=== PATIENT | male | born 1980 | race Caucasian/White ===

== ENCOUNTER 2016-11-28 14:49 | Emergency (ER) | payer OTHER ==
[~2016-11-28] VITALS: Ht 188 cm; Wt 87.1 kg
[2016-11-28 14:52] VITALS: TEMP 37.1; Ht 188 cm; Wt 87.1 kg
[2016-11-28] MEDS ORDERED: BUPIVACAINE 0.5 % 5 MG/1 ML MPF 30ML VIAL INFIL STA (15:20)
[2016-11-28] MEDS ORDERED: XYLOCAINE 1%/SOD BICARB 20 ML VIAL INFIL STA (15:20)
--- NOTE | 2016-11-28 15:41 | DIAGNOSTIC IMAGING REPORT ---
Right thumb 3 views CLINICAL HISTORY: Pain status post trauma COMPARISON: None. DISCUSSION: 3 views reveal no fractures or dislocations. There is an injury involving the distal soft tissues. No radiopaque foreign bodies are visualized. IMPRESSION: Soft tissue injury. No fractures are visualized. Electronically signed by: Urbano Duke M.D. 11/28/2016 3:40 PM Dictated Date/Time: 11/28/2016 3:39 PM
--- NOTE | 2016-11-28 17:08 | EMERGENCY ROOM VISIT NOTE ---
ED Visit Note First contact with patient: 15:10 Chief Complaint: "Cut the tip of right thumb off". History of Present Illness: This patient is a 36-year-old male who presents to the Emergency Department via private vehicle for evaluation of their right thumb laceration. Patient sustained the laceration while cleaning a food slicer. They report a moderate amount of bleeding initially. They deny any numbness or tingling into the distal extremity. They report no decreased range of motion of the affected digit. Patient rates his current discomfort as a 2/10. Patient's Tetanus status is currently up-to-date. Medications: None reported Allergies: None reported PMH: Unremarkable SHx: Patient is employed, he admits to tobacco use and denies alcohol use. ROS: All pertinent positive and negative review of systems are appropriately documented in the History of Present Illness. Physical Exam: VITAL SIGNS - Vital signs and nursing notes were reviewed. Patient is afebrile , blood pressure 157/61, non-tachycardic and is saturating well on room air 97%. GENERAL -36-year-old male appearing his stated age who is in no acute distress. Communicates well with provider and answers questions appropriately. SKIN - There is a 2 cm long laceration noted distal tip of the right thumb, with involvement into the nailbed. The nail is intact, but is lacerated on the lateral aspect, distal one third. The edges gape apart with traction. No foreign bodies appreciated. Upon further examination there are no deep structures including vessel, tendon, or bony structures appreciated. There is minimal active bleeding noted. MUSCULOSKELETAL - Laceration as described above. +5/5 strength appreciated of the affected digit. Full range of motion of the affected digit. NEUROLOGIC - Spinothalamic tract was found to be intact with ability to discriminate sharp versus dull sensation. No sensory defects of the dorsal column were appreciated utilizing light touch for evaluation. VASCULAR - Capillary refill was brisk. IMAGING: Right thumb 3 views CLINICAL HISTORY: Pain status post trauma COMPARISON: None. DISCUSSION: 3 views reveal no fractures or dislocations. There is an injury involving the distal soft tissues. No radiopaque foreign bodies are visualized. IMPRESSION: Soft tissue injury. No fractures are visualized. Electronically signed by: Urbano Duke M.D. 11/28/2016 3:40 PM Dictated Date/Time: 11/28/2016 3:39 PM ED Course: Patient was seen and evaluated by myself. Risks and benefits of performing primary wound closure versus no repair were discussed with the patient who verbalizes understanding. There was concern for distal phalanx involvement therefore radiograph was obtained. Results as above. I agree with radiologist findings. Verbal consent was obtained prior to performing the procedure. 6 cc of 50/50 1 % buffered lidocaine and 0.5% bupivacaine was used to perform a digital block of the right first digit. The wound was cleansed and prepped in the typical sterile fashion utilizing normal saline and Betadine. The wound was sterilely draped. Once proper anesthetization was established, the wound was further examined and demonstrated a laceration not full-thickness, this seems to spare the bone. The wound was copiously irrigated with normal saline and Betadine. The wound was closed using 2 simple, 5-0 nylon sutures with the wound edges being well approximated. Patient tolerated the procedure well. No complications were met. The wound was cleansed and dressed with a Bacitracin dressing. Patient educated on worrisome symptoms for return visit to the Emergency Department. Patient discharged to home in good condition. In the evaluation and treatment of this patient following differential diagnoses were entertained: Finger fracture, contusion, laceration, among others. Current/Historical Medications No Active Prescriptions or Reported Meds Allergies Coded Allergies: No Known Allergies (Unverified , 02/21/15) Vital Signs Date Time Temp Pulse Resp B/P Pulse Ox O2 Delivery O2 Flow Rate FiO2 11/28/16 17:24 63 14 138/89 95 11/28/16 14:52 37.1 70 18 157/61 97 Room Air Departure Information Impression Primary Impression: Laceration Dispostion Home / Self-Care Condition GOOD Prescriptions No Active Prescriptions or Reported Meds Referrals No Doctor, Assigned (PCP) Oleg Larry MD Patient Instructions My [facility] [place] Additional Instructions Discharge Instructions: You have received 2 sutures on your right thumb. These sutures are NOT dissolvable and WILL need to be removed by a health care provider in 12 days. You can return to the Emergency Department or contact your Primary Care Provider to have the sutures removed. Please wear the splint for comfort until the sutures are removed. Proper wound care is essential for adequate wound healing and infection prevention. You can shower and clean the wound with soap and water. Do not scour over the wound, pat dry with a towel. Do not submerse the wound (i.e. bathe or dish wash) until the sutures have been removed. You can use an antibiotic ointment with a dressing over the wound for the next 3-4 days. After this time you may leave the wound dry and open to the air. If crust develops over the wound you can use a Q-tip to apply a 1:1 peroxide:water solution to clean the wound. Look for signs of infection of the wound including: increased pain, swelling, foul discharge, streaking, or increased temperature. If any of these are noticed you should return to the Emergency Department for further assessment and treatment. As with any laceration you may have received nerve damage to the surrounding tissues. This damage may or may not be permanent. You should keep the area covered with sunscreen for the first 6 months to 1 year when at risk for exposure to help minimize scarring. You can also use scar reducing creams or Vitamin E oil to help minimize scarring. For pain control, you can use the following uvso-rxe-xtbmsil medicines (if >12 yo): - Regular strength (325mg/tab) Tylenol (acetaminophen) 2 tabs every 4-6 hours as needed. Do not exceed 12 tablets in a 24 hour period. Avoid taking more than 4 grams (4000 mg) of Tylenol per day. This includes any other sources of acetaminophen you may take on a regular basis. - Regular strength (200 mg/tab) Advil (ibuprofen) 1-2 tabs every 4-6 hours as needed. Do not exceed a dose of 3200 mg per day. Return to the emergency department if your symptoms worsen despite treatment course outlined above. You've the provided number for a hand specialist. It is recommended he follow- up with him regarding your injury. (Dr. Larry) Please follow-up with Workmen's Compensation individuals for final clearance to go back to work.
[2016-11-28 17:24] VITALS: BP 138/89; PULSE 63; O2SAT 95
== END 2016-11-28 17:27 | disposition home or self-care (01) ==
LOC: C.EDB 14:50 → C.EDD 17:27
DX: S61.112A Laceration without foreign body of left thumb with damage to nail, initial encounter (principal); W31.82XA Contact with other commercial machinery, initial encounter; Y93.G1 Activity, food preparation and clean up; Y99.0 Civilian activity done for income or pay; F17.200 Nicotine dependence, unspecified, uncomplicated

== ENCOUNTER 2017-04-02 01:06 | Emergency (ER) | payer SELFPAY ==
[~2017-04-02] VITALS: Ht 188 cm; Wt 84.1 kg
[2017-04-02 01:11] VITALS: TEMP 36.6; Ht 188 cm; Wt 84.1 kg
[2017-04-02] MEDS ORDERED: LIDO/EPINEPHRINE/SOD BICARB 20 ML VIAL INFIL ONE (01:17)
--- NOTE | 2017-04-02 01:33 | EMERGENCY ROOM VISIT NOTE ---
ED Visit Note First contact with patient: 01:18 CHIEF COMPLAINT: Finger laceration HISTORY OF PRESENT ILLNESS: This 37 yo patient presents to the emergency department with friend after cutting the right first finger on a piece of glass. The bleeding has not stopped. Denies weakness or numbness of the finger. The patient has full range of motion of the fingers. The patient rates the pain as mild and 2/10. The patient denies any other injuries. The patient's tetanus shot is up to date. REVIEW OF SYSTEMS: A 6 system review of systems was completed with positives and pertinent negatives listed in the HPI. ALLERGIES: None MEDICATIONS: None PMH: None SOCIAL HISTORY: No drug use PHYSICAL EXAM: Vital Signs: Reviewed Nurse's notes, vital signs stable. GENERAL : Pleasant male, in no acute distress, well developed, well nourished. SKIN: There is a 3 cm long laceration on the proximal aspect of the right first finger. The edges gape apart with traction. There is no foreign material in the wound and it looks clean. There is bleeding. No deep structures such as tendons , bones, or significant blood vessels are seen in the base of the wound. Extension and flexion of the finger is full and strong. Full range of motion of the wrist and other fingers. Capillary refill less than 2 seconds. Normal sensation to light and sharp touch. EMERGENCY DEPARTMENT COURSE: I examined the patient. Using sterile technique the wound was cleansed with Betadine. 2 ml of 1% buffered lidocaine was used to perform a digital block to anesthetize the patient. The area was sterilely draped. Once the patient was anesthetized, the wound was copiously irrigated under pressure with sterile saline. The wound was explored and there were no deep structures injured. The laceration was repaired using 5 simple interrupted 5-0 nylon sutures. The patient tolerated the procedure well. Hemostasis was achieved. The area was cleaned with sterile saline and dressed with bacitracin ointment and bandage. 5 The patient was given a tetanus booster. The patient was discharged home in good condition. DIAGNOSIS: Finger laceration, thumb right, initial evaluation DISCHARGE INSTRUCTIONS & TREATMENT: Keep wound clean and dry. Do not allow any crusting or dried blood to accumulate on sutures. If this occurs, use a 1:1 solution of hydrogen peroxide/water on a Q-tip to clean the wound. Use an antibiotic ointment for 3-4 days, then let wound dry. Suture removal in 10-12 days. Return sooner for any signs of infection (increasing redness, swelling, drainage). Ice and elevate for swelling and pain. Ibuprofen 600 mg and Tylenol 500 mg every 6 hrs for pain. Keep covered when in sun until sutures removed then SPF 50 or higher for one year. Vitamin E oil if desired two weeks after suture removal for reduction of scar. Current/Historical Medications No Active Prescriptions or Reported Meds Allergies Coded Allergies: No Known Allergies (Unverified , 02/21/15) Vital Signs Date Time Temp Pulse Resp B/P (MAP) Pulse Ox O2 Delivery O2 Flow Rate FiO2 04/02/17 01:11 36.6 79 16 130/71 95 Room Air Medications Administered Medications (Trade) Dose Ordered Sig/Jin Route Start Time Stop Time Status Last Admin Dose Admin Lidocaine/ Epinephrine (Buffered Xylocaine/ Epinephrine 1% Inj) 20 ml STK-MED ONCE INFIL 04/02/17 01:17 04/02/17 01:18 DC 04/02/17 01:17 20 ML Departure Information Prescriptions No Active Prescriptions or Reported Meds Referrals No Doctor, Assigned (PCP) Patient Instructions My [facility]
[2017-04-02 01:39] VITALS: BP 125/67; PULSE 70; O2SAT 95
== END 2017-04-02 01:40 | disposition home or self-care (01) ==
LOC: C.EDB 01:07 → C.EDA 01:40
DX: S61.011A Laceration without foreign body of right thumb without damage to nail, initial encounter (principal); W25.XXXA Contact with sharp glass, initial encounter

== ENCOUNTER 2017-12-14 11:30 | Emergency (ER) | payer SELFPAY ==
[~2017-12-14] VITALS: Ht 188 cm; Wt 88.5 kg
[2017-12-14 11:34] VITALS: Ht 188 cm; Wt 88.5 kg
[2017-12-14] MEDS ORDERED: ACETAMINOPHEN 500 MG TAB PO STA (11:55)
--- NOTE | 2017-12-14 12:28 | DIAGNOSTIC IMAGING REPORT ---
L-SPINE MIN 4 VIEWS ROUTINE CLINICAL HISTORY: Left low back pain. COMPARISON: Lumbar spine radiographs April 10, 2009. FINDINGS: Alignment of the lumbar spine is anatomic. There is no acute fracture. There is no suspicious lesion. There is mild disc space narrowing at L4-L5 and L5-S1. IMPRESSION: 1. No acute lumbar spine fracture or subluxation. 2. Mild disc space narrowing and osteophytosis at L4-L5 and L5-S1. Electronically signed by: Bryan Lowry M.D. 12/14/2017 12:27 PM Dictated Date/Time: 12/14/2017 12:26 PM
[2017-12-14] MEDS ORDERED: PRED50TA PO (12:55)
[2017-12-14] MEDS ORDERED: TRAM-10 PO (12:55)
[2017-12-14] MEDS ORDERED: CYCL10TA6 PO (12:55)
[2017-12-14 13:18] VITALS: BP 132/67; PULSE 50; TEMP 36.4; O2SAT 98
--- NOTE | 2017-12-14 16:22 | EMERGENCY ROOM VISIT NOTE ---
ED Visit Note First contact with patient: 11:40 CHIEF COMPLAINT: Low back pain HISTORY OF PRESENT ILLNESS: This 37-year-old male patient presents to the emergency department complaining of pain in the low back which began worsening over the past 2-3 days. The pain was gradual in onset, is now constant and worse with movement. The patient notes the pain as dull and a 7/10. The patient has taken nothing [id number] for relief of the pain. The patient denies any loss of control of their bowel or bladder functions. There has been no leg numbness or weakness, and no change in sensation. No nausea or vomiting or abdominal pain. No chest pain or shortness of breath. The patient has not had prior back injuries. No dysuria or increased urinary frequency. REVIEW OF SYSTEMS: A review of systems was performed with positives and pertinent negatives listed in the history of present illness. All other systems were reviewed and are negative. ALLERGIES: No known allergies MEDICATIONS: No chronic medication PMH: Otherwise healthy SOCIAL HISTORY: Employed and lives locally PHYSICAL EXAM: VITALS: Vitals are noted on the nurse's note and reviewed by myself. Vital signs stable. GENERAL: White male, in no acute distress, nondiaphoretic, well-developed well- nourished. SKIN: The skin was without rashes, erythema, edema, or bruising. Capillary refill less than 2 seconds. NECK: Supple without nuchal rigidity. No cervical spine tenderness. No paraspinous muscle tenderness. HEART: Regular rate and rhythm without murmurs gallops or rubs. LUNGS: Clear to auscultation bilaterally without wheezes, rales or rhonchi. ABDOMEN: Positive bowel sounds x 4. Normal tympanic percussion. Soft, nontender, without masses or organomegaly. Lim sign negative. MUSCULOSKELETAL: No muscle atrophy, erythema, or edema noted of the back. There is positive tenderness over the lumbar spinous processes. There is mild tenderness over the paraspinous muscles. There is no tenderness over the thoracic spine or paraspinous muscles. There are no muscle spasms present. The patient is slow to move around with maximum tenderness with flexion. Positive left greater than right straight leg raise test. NEURO: Patient was alert and oriented to person place and time. Normal sensation to light and sharp touch. Deep tendon reflexes 2+ in the lower extremities. Dorsalis pedis pulse 2+ bilaterally. Strength 5/5 and equal in the bilateral lower extremities. L-SPINE MIN 4 VIEWS ROUTINE CLINICAL HISTORY: Left low back pain. COMPARISON: Lumbar spine radiographs April 10, 2009. FINDINGS: Alignment of the lumbar spine is anatomic. There is no acute fracture. There is no suspicious lesion. There is mild disc space narrowing at L4-L5 and L5-S1. IMPRESSION: 1. No acute lumbar spine fracture or subluxation. 2. Mild disc space narrowing and osteophytosis at L4-L5 and L5-S1. EMERGENCY DEPARTMENT COURSE: Physical and history were performed. Nursing notes and EMR were reviewed. The patient appears to have back pain for the past several days. He does have some low back tenderness but no neurologic deficit. X-rays were obtained and did not show acute fracture or subluxation per my radiology's interpretation. I did give the patient Tylenol here in the department. He will be given a continuation prescription of tramadol, Flexeril , and prednisone. He is to follow with his primary care physician for further management. He is otherwise very back to the ER with any new, worsening, or concerning symptoms. Differential diagnosis: Etiologies such as musculoskeletal, disc herniation, fracture, aortic disease, metastatic disease, cord compression, discitis, infection, renal colic, gastrointestinal, acute exacerbation of chronic back pain, sciatica, cauda equina, as well as others were entertained. Current/Historical Medications Scheduled Cyclobenzaprine Hcl (Flexeril), 10 MG PO TID Prednisone (Prednisone), 50 MG PO DAILY Scheduled PRN Tramadol (Ultram), 50 MG PO Q8H PRN for Pain Allergies Coded Allergies: No Known Allergies (Unverified , 12/14/17) Vital Signs Date Time Temp Pulse Resp B/P (MAP) Pulse Ox O2 Delivery O2 Flow Rate FiO2 12/14/17 13:18 36.4 50 12 132/67 98 12/14/17 11:34 36.4 59 20 138/88 98 Room Air Medications Administered Medications (Trade) Dose Ordered Sig/Jin Route Start Time Stop Time Status Last Admin Dose Admin Acetaminophen (Tylenol Tab) 1,000 mg NOW STAT PO 12/14/17 11:55 12/14/17 11:56 DC 12/14/17 12:03 1,000 MG Departure Information Impression Primary Impression: Low back pain Dispostion Home / Self-Care Prescriptions Prednisone (Prednisone) 50 Mg Tab 50 MG PO DAILY for 4 Days, #4 TAB Prov: Jonathan Salas PA-C 12/14/17 Cyclobenzaprine Hcl (FLEXERIL) 10 Mg Tab 10 MG PO TID for 7 Days, #21 TAB Prov: Jonathan Salas PA-C 18 Tramadol (Ultram) 50 Mg Tab 50 MG PO Q8H Y for Pain for 3 Days, #9 TAB Prov: Jonathan Salas PA-C 12/14/17 Forms HOME CARE DOCUMENTATION FORM, IMPORTANT VISIT INFORMATION Patient Instructions My [facility] Additional Instructions You were seen and evaluated today on an emergency basis only. This is not a substitute for, or an effort to provide, complete comprehensive medical care. It is not possible to recognize and treat all injuries or illnesses in a single emergency department visit. For this reason it is recommended that you followup with your primary care physician in the next 1-2 weeks if symptoms persist. For baseline pain relief you may alternate ibuprofen and acetaminophen every 4 hours for pain control. Take 600 mg ibuprofen (Advil) and then 4 hours later take 1000 mg acetaminophen (Tylenol). Do not take more than 3000 mg acetaminophen in a single day. Take tramadol 50 mg every 8 hours as needed for breakthrough pain. Do not drink or drive while on this medication. Flexeril 1 tablet up to 3 times a day as needed for muscle spasms. No driving, working, or alcohol use with Flexeril. Take prednisone daily for the next 4 days. This medication is best taken in the morning with food. You are welcome to return to the emergency department anytime with new, worsening, or concerning symptoms.
== END 2017-12-14 13:19 | disposition home or self-care (01) ==
LOC: C.EDB 11:32 → C.EDD 13:19
DX: M54.5 Low back pain (principal)

== ENCOUNTER 2018-01-27 16:40 | Emergency (ER) | payer SELFPAY ==
[~2018-01-27] VITALS: Ht 188 cm; Wt 83.6 kg
[2018-01-27 16:43] VITALS: TEMP 36.5; Ht 188 cm; Wt 83.6 kg
[2018-01-27 16:54] VITALS: O2SAT 98
[2018-01-27] MEDS ORDERED: KETOROLAC TROMETHAMINE 30 MG/ML VIAL IV STA (17:04)
[2018-01-27] MEDS ORDERED: ACETAMINOPHEN 500 MG TAB PO STA (17:04)
--- NOTE | 2018-01-27 17:08 | EMERGENCY ROOM VISIT NOTE ---
History Report prepared by Darren: Erasto Whitten Under the Supervision of: Dr. Hiren Quintana M.D. First contact with patient: 16:47 Chief Complaint: CHEST PAIN Stated Complaint: BRADYCARDIA, CHEST PAIN-[facility] RE[facility]ERR[facility] History of Present Illness The patient is a 38 year old white male with no past medical history who presents to the ED with a cc of coming and going chest pain beginning four days ago that is described as a tightness and sharp. Positive cough, chills and night sweat. Negative fever, history of clots in the lungs or legs, recent travel, leg swelling, drug use, trauma, strain, or heavy lifting. The pain stays in the middle occasionally going to the left. He has not taken anything for the pain other than Tylenol at [facility]. He smokes tobacco. Source of History: patient Onset: four days ago Position: chest Quality: sharp, other (tight) Timing: other (coming and going) Associated Symptoms: + chills, + cough, No fevers Note: Associated symptoms: Night sweats Review of Systems See HPI for pertinent positives and negatives. A total of ten systems were reviewed and were otherwise negative. Family History Diabetes mellitus Social History Smoking Status: Current Every Day Smoker Alcohol Use: occasionally Marital Status: Housing Status: lives with family Occupation Status: employed Current/Historical Medications Scheduled Ibuprofen Tab (Advil), 400 MG PO UD Allergies Coded Allergies: No Known Allergies (Unverified , 01/27/18) Physical Exam Vital Signs Date Time Temp Pulse Resp B/P (MAP) Pulse Ox O2 Delivery O2 Flow Rate FiO2 01/27/18 18:59 59 17 112/73 98 01/27/18 17:52 63 15 127/73 99 Room Air 01/27/18 17:15 57 17 131/83 99 Room Air 01/27/18 16:59 58 01/27/18 16:54 98 Room Air 01/27/18 16:43 36.5 51 16 148/78 98 Room Air Physical Exam GENERAL: Awake, alert, well-appearing, NAD HENT: Normocephalic, atraumatic. EYES: Normal conjunctiva. Sclera non-icteric. PERRL. No anisocoria. NECK: Supple. No nuchal rigidity. FROM. RESPIRATORY: CTAB, no rhonchi, wheezing, crackles CARDIAC: RRR, no MRG ABDOMEN: Soft, NTND, BS+ MSK: No chest wall TTP, no LE edema NEURO: GCS 15, CN 2-12 intact, moves all 4s on command SKIN: No rash or jaundice noted. Medical Decision & Procedures ER Provider Diagnostic Interpretation: Radiology results as stated below per my review and radiologist interpretation: CHEST ONE VIEW PORTABLE CLINICAL HISTORY: Atypical chest pain. Bradycardia. COMPARISON STUDY: No previous studies for comparison. FINDINGS: The cardiac and mediastinal contours are normal. There is no evidence of focal pulmonary consolidation. There is no evidence of failure. No pleural effusions are visualized.[ IMPRESSION: No active disease in the chest. Electronically signed by: Urbano Duke M.D. 01/27/2018 5:19 PM Dictated Date/Time: 01/27/2018 5:19 PM Laboratory Results 01/27/18 17:03 Red Blood Count 4.95, Mean Corpuscular Volume 85.1, Mean Corpuscular Hemoglobin 30.3, Mean Corpuscular Hemoglobin Concent 35.6, Mean Platelet Volume 10.6, Neutrophils (%) (Auto) 62.8, Lymphocytes (%) (Auto) 28.2, Monocytes (%) (Auto) 7.7, Eosinophils (%) (Auto) 0.6, Basophils (%) (Auto) 0.6, Neutrophils # (Auto) 4.22, Lymphocytes # (Auto) 1.90, Monocytes # (Auto) 0.52, Eosinophils # (Auto) 0.04, Basophils # (Auto) 0.04 01/27/18 17:03 Test 01/27/18 17:03 White Blood Count 6.73 K/uL (4.8-10.8) Red Blood Count 4.95 M/uL (4.7-6.1) Hemoglobin 15.0 g/dL (14.0-18.0) Hematocrit 42.1 % (42-52) Mean Corpuscular Volume 85.1 fL (80-100) Mean Corpuscular Hemoglobin 30.3 pg (25-34) Mean Corpuscular Hemoglobin Concent 35.6 g/dl (32-36) Platelet Count 271 K/uL (130-400) Mean Platelet Volume 10.6 fL (7.4-10.4) Neutrophils (%) (Auto) 62.8 % Lymphocytes (%) (Auto) 28.2 % Monocytes (%) (Auto) 7.7 % Eosinophils (%) (Auto) 0.6 % Basophils (%) (Auto) 0.6 % Neutrophils # (Auto) 4.22 K/uL (1.4-6.5) Lymphocytes # (Auto) 1.90 K/uL (1.2-3.4) Monocytes # (Auto) 0.52 K/uL (0.11-0.59) Eosinophils # (Auto) 0.04 K/uL (0-0.5) Basophils # (Auto) 0.04 K/uL (0-0.2) RDW Standard Deviation 41.1 fL (36.4-46.3) RDW Coefficient of Variation 13.3 % (11.5-14.5) Immature Granulocyte % (Auto) 0.1 % Immature Granulocyte # (Auto) 0.01 K/uL (0.00-0.02) Anion Gap 6.0 mmol/L (3-11) Est Creatinine Clear Calc Drug Dose 121.3 ml/min Estimated GFR () 115.1 Estimated GFR (Non- 99.3 BUN/Creatinine Ratio 11.5 (10-20) Calcium Level 8.9 mg/dl (8.5-10.1) Troponin I < 0.015 ng/ml (0-0.045) Laboratory results reviewed by me Medications Administered Medications (Trade) Dose Ordered Sig/Jin Route Start Time Stop Time Status Last Admin Dose Admin Acetaminophen (Tylenol Tab) 1,000 mg NOW STAT PO 01/27/18 17:04 01/27/18 17:13 DC 01/27/18 17:15 1,000 MG Ketorolac Tromethamine (Toradol Inj) 30 mg NOW STAT IV 01/27/18 17:04 01/27/18 17:13 DC 01/27/18 17:16 30 MG ECG Per My Interpretation Indication: chest pain Rate (beats per minute): 50 Rhythm: sinus bradycardia Findings: other (Normal interval, normal axis, no STS changes or TWI) ED Course 1646: The patient was evaluated in room C3. A complete history and physical exam was performed. 1833: I reevaluated the patient. Discussed results and discharge instructions: he verbalized understanding and agreement. The patient is ready for discharge. Medical Decision Nursing notes reviewed. Ancillary studies and prior records reviewed. The patient is a 38 year old white male with no past medical history who presents to the ED with a cc of coming and going chest pain beginning four days ago that is described as a tightness and sharp. Differential diagnosis: Etiologies such as cardiac ischemia, aortic dissection, pulmonary embolism, pneumonia, pneumothorax, musculoskeletal, infections, pericarditis, myocarditis , esophageal rupture, gastrointestinal, as well as others were entertained. Patient was seen and evaluated at the bedside. Patient was referred given some mild chest discomfort along with some bradycardia. Per the outside records they were concerned about a junctional bradycardia. I did review the outside EKG there does appear to be P waves. Patient did complain of some mild chest discomfort. The patient was given 4 aspirin prior to arrival. The patient denies any exertional symptoms. Patient is a smoker. No history of DVT or PE. Patient had blood work completed, EKG, troponin, chest x-ray. Patient's chest x -ray is negative. Patient's EKG shows sinus bradycardia. No STS changes are TWI. Patient has a heart score of 1. Less likely ACS. Believe he is suitable for outpatient follow-up and treatment. The patient has a PE RC score of 0 less likely PE. This may be related to some bronchitis given the patient's smoking history. Patient was given counseling on smoking cessation told to continue [id number] type treatments and to return if any worsening symptoms. Patient was given strict follow-up, discharge, and return precautions. All questions were answered. Patient was deemed suitable for outpatient follow-up at this time. Patient agreed with the plan of care and was safely discharged home. Medication Reconcilliation Current Medication List: was personally reviewed by me Blood Pressure Screening Patient's blood pressure: Elevated blood pressure Blood pressure disposition: Elevated BP felt to be situational Impression Primary Impression: Chest pain Additional Impressions: Encounter for smoking cessation counseling Hypokalemia Bronchitis Scribe Attestation The scribe's documentation has been prepared under my direction and personally reviewed by me in its entirety. I confirm that the note above accurately reflects all work, treatment, procedures, and medical decision making performed by me. Departure Information Dispostion Home / Self-Care Referrals No Doctor, Assigned (PCP) Forms Call Back Authorization, HOME CARE DOCUMENTATION FORM, IMPORTANT VISIT INFORMATION Patient Instructions Bronchitis Acute, ED Smoking Cessation, My [facility] Additional Instructions Please return to the emergency department if you have worsening or recurrent symptoms not amenable to at-home treatment. Please call for a follow-up appointment with her primary care physician. Please take your medications as prescribed. If you have other concerns and/or complaints please feel free to also call your primary care physician's office or return the ED for further evaluation, management, and treatment. You may take 800 mg Ibuprofen every 6 hours as needed for pain/fever with food unless told by your physician not to take NSAIDs. You may take tylenol 1000 mg every 6 hours as needed for pain/fever unless told by your physician to not take it or have liver problems. You may take motrin and tylenol separately or at the same time. Take your medications as prescribed. Please consider smoking cessation. You have been examined and treated today on an emergency basis only. This is not a substitute for, or an effort to provide, complete comprehensive medical care. It is impossible to recognize and treat all injuries or illnesses in a single emergency department visit. It is therefore important that you follow up closely with [facility], your PCP, and/or your specialist(s). Call as soon as possible for an appointment. Thank you for your time and consideration. I look forward to speaking with you again soon. Please don't hesitate to call us if you have any questions. Problem Qualifiers Primary Impression: Chest pain Chest pain type: unspecified Qualified Codes: R07.9 - Chest pain, unspecified
--- NOTE | 2018-01-27 17:21 | DIAGNOSTIC IMAGING REPORT ---
CHEST ONE VIEW PORTABLE CLINICAL HISTORY: Atypical chest pain. Bradycardia. COMPARISON STUDY: No previous studies for comparison. FINDINGS: The cardiac and mediastinal contours are normal. There is no evidence of focal pulmonary consolidation. There is no evidence of failure. No pleural effusions are visualized.[ IMPRESSION: No active disease in the chest. Electronically signed by: Urbano Duke M.D. 01/27/2018 5:19 PM Dictated Date/Time: 01/27/2018 5:19 PM
[2018-01-27 17:31] LABS: BASO % 0.6 %; BASO ABS # 0.04 K/uL (0-0.2); EOS % 0.6 %; EOS ABS # 0.04 K/uL (0-0.5); HEMATOCRIT 42.1 % (42-52); IG# 0.01 K/uL (0.00-0.02); LYMPH % 28.2 %; MEAN CELL VOLUME 85.1 fL (80-100); MEAN CORPUSCULAR HEMOGLOBIN 30.3 pg (25-34); MEAN CORPUSCULAR HGB CONC 35.6 g/dl (32-36); MEAN PLATELET VOLUME 10.6 fL (7.4-10.4); MONO % 7.7 %; MONO ABS # 0.52 K/uL (0.11-0.59); NEUT % 62.8 %; NEUT ABS # 4.22 K/uL (1.4-6.5); PLATELET COUNT 271 K/uL (130-400); RED CELL DISTRIBUTION WIDTH CV 13.3 % (11.5-14.5); RED CELL DISTRIBUTION WIDTH SD 41.1 fL (36.4-46.3); WHITE BLOOD COUNT 6.73 K/uL (4.8-10.8)
[2018-01-27 17:46] LABS: BLOOD UREA NITROGEN 11 mg/dl (7-18); CALCIUM 8.9 mg/dl (8.5-10.1); CARBON DIOXIDE 25 mmol/L (21-32); CREATININE 0.97 mg/dl (0.60-1.40); GLUCOSE 96 mg/dl (70-99); POTASSIUM 3.4 mmol/L (3.5-5.1); SODIUM 139 mmol/L (136-145)
[2018-01-27] MEDS ORDERED: IBUP-103 PO (18:15)
[2018-01-27 18:59] VITALS: BP 112/73; PULSE 59; O2SAT 98
== END 2018-01-27 19:00 | disposition home or self-care (01) ==
LOC: C.EDB 16:42 → C.EDC 19:00
DX: R07.9 Chest pain, unspecified (principal); J40 Bronchitis, not specified as acute or chronic; R00.1 Bradycardia, unspecified; R03.0 Elevated blood-pressure reading, without diagnosis of hypertension; F17.200 Nicotine dependence, unspecified, uncomplicated

== ENCOUNTER 2022-03-09 18:11 | Inpatient (IN) ==
[2022-03-09] MEDS ORDERED: FAMOTIDINE 20MG IV PUSH 20 MG/5 ML SYR IV STA (18:45)
[2022-03-09] MEDS ORDERED: ONDANSETRON INJ 2 MG/ML 2 ML VIAL IV STA (18:45)
[2022-03-09] MEDS ORDERED: PANTOprazole 40 MG in SYRINGE 0 ML IV ONE (18:45)
[2022-03-09 18:58] LABS: Basophils # (auto) 0.06 K/uL (0-0.2); Basophils % (auto) 0.7 %; Eosinophils % (auto) 1.2 %; Hematocrit (blood only) 23.1 % (42-52); Hemoglobin 8.2 g/dL (14.0-18.0); Immature Granulocytes # (auto) 0.03 K/uL (0.00-0.02); Immature Granulocytes % (auto) 0.4 %; Lymphocytes # (auto) 3.22 K/uL (1.2-3.4); Lymphocytes % (auto) 37.8 %; Mean Corpuscular Hgb Conc 35.5 g/dL (32-36); Mean Corpuscular Volume 84.6 fL (80-100); Mean Platelet Volume 10.7 fL (7.4-10.4); Monocytes # (auto) 0.47 K/uL (0.11-0.59); Monocytes % (auto) 5.5 %; Neutrophils # (auto) 4.64 K/uL (1.4-6.5); Neutrophils % (auto) 54.4 %; Nucleated RBC # (auto) 0.03 K/uL (0-0); Nucleated RBC % (auto) 0.3 %; Platelet Count 300 K/uL (130-400); RDW Coefficient of Variation 13.7 % (11.5-14.5); RDW Standard Deviation 41.5 fL (36.4-46.3); Red Blood Count 2.73 M/uL (4.7-6.1); White Blood Count 8.52 K/uL (4.8-10.8)
--- NOTE | 2022-03-09 18:58 | Emergency Department Note ---
History of Present Illness General Chief complaint: Referred by Doctor Stated complaint: POSSIBLE BLEEDING ULCER Time Seen by Provider: 03/09/22 18:35 History of Present Illness This is a 42-year-old male presenting to the emergency department for evaluation of tarry stools for the past 4 days. The patient states that he has been taking Hai back and body tablets for the past few weeks for aches and pains. This is a 500 mg aspirin product per pill. The patient does not have significant pain in his chest or abdomen. He went to an urgent care center earlier today because of the discomfort, and did have outpatient blood work performed that did reveal a hemoglobin of 8.5. Review of the EMR shows the patient had a hemoglobin of 16 4 years ago. The patient is usually healthy and does not take any prescription medication. He does feel dizzy when bending over. No chest pain, chest tightness, or shortness of breath. He rates his current discomfort a 1/10. He has never had a blood transfusion. He does work at a [employer]. He does not have a personal or family history of inflammatory bowel disease. Home Medications Medication Instructions Recorded Confirmed Type ibuprofen 200 mg tablet 200 mg PO Q6H #0 01/27/18 03/09/22 History Allergies Allergy/AdvReac Type Severity Reaction Status Date / Time No Known Allergies Allergy Unverified 03/09/22 18:31 Past Med/Surg History Medical History No chronic diseases present Surgical History No significant past surgical history Social History Smoking Status: Never smoker Hx Alcohol Use: No Hx Substance Use: Yes Last Used Substance: Days (ago) Preferred Language: Paraguayan Communication Ability: Effective Land Surveyor Required: No Beliefs That Will Affect Care: None Current Living Situation: Other Current Living Situation Comment: lives with fiance Other Information That Helps Us Care for You: No Feels Safe at Home: Yes Assistive Devices: None Review of Systems A total of 10 systems reviewed and were otherwise negative Physical Exam Vital Signs Vital Signs - 24 hr 03/09/22 18:15 03/09/22 19:17 Temperature 36.4 C L Temperature Source Temporal Artery Scan Pulse Rate 97 H Pulse Rhythm Regular Pulse Strength Normal Respiratory Rate 16 Respiratory Effort / Characteristics Non-Labored Respiratory Depth Normal Blood Pressure 135/77 Blood Pressure Mean 96 Pulse Oximetry 99 100 Oxygen Delivery Method Room Air Sepsis Recent Fever Within 48 Hours No Sepsis New/Unexplained Change in Mental Status N/A Sepsis Action Taken by Nursing No Action Required VITALS: Vitals are noted on the nurse's note and reviewed by myself. Vital signs stable. GENERAL: Well-developed, well-nourished, white male, who is pleasant and interactive. He is pale on presentation. HEAD: Normocephalic atraumatic. NECK: Supple without nuchal rigidity. No lymphadenopathy. No thyromegaly. Cervical spine is nontender. HEART: Regular rate and rhythm without murmurs gallops or rubs. LUNGS: Clear to auscultation bilaterally without wheezes, rales or rhonchi. No retractions or accessory muscle use. ABDOMEN: Positive normal bowel sounds x 4. Soft, nontender, without masses or organomegaly. No guarding or rebound tenderness. MUSCULOSKELETAL: No muscle atrophy, erythema, or edema noted. Full range of motion in all extremities. Course Administered Medications Pantoprazole Sodium 40 mg/ (Dextrose) 100 mls @ 20 mls/hr IV Q5H MANUEL Stop: 04/08/22 20:44 Last Admin: 03/10/22 18:37 Dose: 8 mg/hr, 20 mls/hr Documented by: [id number] Infusion: 03/10/22 18:37 Dose: 8 mg/hr, 20 mls/hr Documented by: [id number] Admin: 03/10/22 13:39 Dose: 8 mg/hr, 20 mls/hr Documented by: [id number] Infusion: 03/10/22 13:35 Dose: 8 mg/hr, 20 mls/hr Documented by: [id number] Admin: 03/10/22 08:35 Dose: 8 mg/hr, 20 mls/hr Documented by: [id number] Infusion: 03/10/22 08:17 Dose: 8 mg/hr, 20 mls/hr Documented by: [id number] Admin: 03/10/22 03:17 Dose: 8 mg/hr, 20 mls/hr Documented by: [id number] Infusion: 03/10/22 03:16 Dose: 0 mg/hr, 0 mls/hr Documented by: [id number] Admin: 03/09/22 21:39 Dose: 8 mg/hr, 20 mls/hr Documented by: [id number] Lactated Ringer's (Lr) 1,000 mls @ 60 mls/hr IV .[id number] MANUEL Stop: 04/08/22 21:14 Last Admin: 03/10/22 14:43 Dose: 60 mls/hr Documented by: [id number] Infusion: 03/10/22 14:43 Dose: 60 mls/hr Documented by: [id number] Admin: 03/09/22 22:58 Dose: 60 mls/hr Documented by: [id number] Iron Sucrose 400 mg/ Sodium (Chloride) 270 mls @ 108 mls/hr IV Q24H MANUEL Stop: 03/12/22 18:29 Last Admin: 03/10/22 20:53 Dose: 108 mls/hr Documented by: [id number] Magnesium Oxide (Magnesium Oxide 400 Mg Tab) 400 mg PO BID MANUEL Stop: 04/09/22 20:59 Last Admin: 03/10/22 20:52 Dose: 400 mg Documented by: [id number] Discontinued Medications Pantoprazole Sodium 40 mg/ (Syringe) 10 mls @ 5 mls/min IV NOW ONE Stop: 03/09/22 18:46 Last Admin: 03/09/22 21:05 Dose: 5 mls/min Documented by: [id number] Famotidine (Pepcid 20mg Iv Push) 20 mg in 5 mls @ 2.5 mls/min IV NOW STA Stop: 03/09/22 18:46 Last Admin: 03/09/22 19:01 Dose: 2.5 mls/min Documented by: [id number] Sodium Chloride (Nss 1000ml) 1,000 mls @ 999 mls/hr IV .Q1H1M MANUEL Stop: 03/09/22 20:30 Last Infusion: 03/09/22 22:52 Dose: 0 mls/hr Documented by: [id number] Admin: 03/09/22 21:05 Dose: 999 mls/hr Documented by: [id number] Magnesium Sulfate/Dextrose (Magnesium Sulfate / D5w) 1 gm in 100 mls @ 50 mls/hr IV ONE ONE Stop: 03/09/22 22:31 Last Infusion: 03/09/22 23:07 Dose: 0 mls/hr Documented by: [id number] Admin: 03/09/22 21:05 Dose: 50 mls/hr Documented by: [id number] Ondansetron HCl (Ondansetron Inj 2 Mg/Ml 2 Ml Vial) 4 mg IV NOW STA Stop: 03/09/22 18:46 Last Admin: 03/09/22 19:01 Dose: 4 mg Documented by: [id number] Potassium Chloride (Potassium Chloride Crtab 20 Meq Tabcr) 40 meq PO NOW STA Stop: 03/09/22 20:33 Last Admin: 03/09/22 21:04 Dose: 40 meq Documented by: [id number] Medical Decision Making Differential Diagnosis Differential diagnosis: Etiologies such as esophagitis, variceal bleed, Boerhaaves, Barnhill-Zee tear, gastritis, peptic ulcer disease, AVM, inflammatory bowel disease, ischemia, diverticulosis, colitis, malignancy, coagulopathy, thrombocytopenia, fissure, hemorrhoid, epistaxis , as well as others were entertained. Laboratory Data Result diagrams: 03/10/22 09:08 03/10/22 05:27 Lab Results 03/09/22 03/09/22 03/09/22 Range/Units 18:40 18:40 18:40 WBC 8.52 (4.8-10.8) K/uL RBC 2.73 L (4.7-6.1) M/uL Hgb 8.2 L (14.0-18.0) g/dL Hct 23.1 L (42-52) % MCV 84.6 (80-100) fL MCH 30.0 (25-34) pg MCHC 35.5 (32-36) g/dL RDW Std Deviation 41.5 (36.4-46.3) fL RDW Coeff of Naa 13.7 (11.5-14.5) % Plt Count 300 (130-400) K/uL MPV 10.7 H (7.4-10.4) fL Immature Gran % (Auto) 0.4 % Neut % (Auto) 54.4 % Lymph % (Auto) 37.8 % Bullitt % (Auto) 5.5 % Eos % (Auto) 1.2 % Baso % (Auto) 0.7 % Neut # (Auto) 4.64 (1.4-6.5) K/uL Lymph # (Auto) 3.22 (1.2-3.4) K/uL Bullitt # (Auto) 0.47 (0.11-0.59) K/uL Eos # (Auto) 0.10 (0-0.5) K/uL Baso # (Auto) 0.06 (0-0.2) K/uL Immature Gran # (Auto) 0.03 H (0.00-0.02) K/uL Absolute Nucleated RBC 0.03 H (0-0) K/uL Nucleated RBC % (auto) 0.3 % ESR 2 (0-15) mm/hr PT 11.3 (9.0-12.0) Seconds INR 1.1 (0.9-1.1) APTT 21.9 (21.0-31.0) Seconds PTT Ratio 0.8 Sodium (136-145) mmol/L Potassium (3.5-5.1) mmol/L Chloride (98-107) mmol/L Carbon Dioxide (21-32) mmol/L Anion Gap (3-11) BUN (6-23) mg/dl Creatinine (0.6-1.4) mg/dl Est Cr Clr Drug Dosing ml/min Est GFR ( Amer) ml/min Est GFR (Non-Af Amer) ml/min BUN/Creatinine Ratio (10-20) Glucose (70-99(Fasting)) mg/dl Calcium (8.5-10.1) mg/dl Magnesium (1.7-2.4) mg/dl Total Bilirubin (0.2-1.0) mg/dl AST (13-39) U/L ALT (7-52) U/L Alkaline Phosphatase (34-104) U/L Troponin I High Sens (0-20) pg/ml C-Reactive Protein (0-0.5) mg/dl Total Protein (6.0-8.3) gm/dl Albumin (3.4-5.0) gm/dl Globulin (2.5-4.0) gm/dl Albumin/Globulin Ratio (0.9-2) Lipase (11-82) U/L SARS-CoV-2, RNA, NAAT (NEGATIVE) Blood Type Antibody Screen Crossmatch 03/09/22 03/09/22 03/09/22 Range/Units 18:45 19:03 19:45 WBC (4.8-10.8) K/uL RBC (4.7-6.1) M/uL Hgb (14.0-18.0) g/dL Hct (42-52) % MCV (80-100) fL MCH (25-34) pg MCHC (32-36) g/dL RDW Std Deviation (36.4-46.3) fL RDW Coeff of Naa (11.5-14.5) % Plt Count (130-400) K/uL MPV (7.4-10.4) fL Immature Gran % (Auto) % Neut % (Auto) % Lymph % (Auto) % Bullitt % (Auto) % Eos % (Auto) % Baso % (Auto) % Neut # (Auto) (1.4-6.5) K/uL Lymph # (Auto) (1.2-3.4) K/uL Bullitt # (Auto) (0.11-0.59) K/uL Eos # (Auto) (0-0.5) K/uL Baso # (Auto) (0-0.2) K/uL Immature Gran # (Auto) (0.00-0.02) K/uL Absolute Nucleated RBC (0-0) K/uL Nucleated RBC % (auto) % ESR (0-15) mm/hr PT (9.0-12.0) Seconds INR (0.9-1.1) APTT (21.0-31.0) Seconds PTT Ratio Sodium 137 (136-145) mmol/L Potassium 3.4 L (3.5-5.1) mmol/L Chloride 107 (98-107) mmol/L Carbon Dioxide 23 (21-32) mmol/L Anion Gap 7 (3-11) BUN 19 (6-23) mg/dl Creatinine 0.95 (0.6-1.4) mg/dl Est Cr Clr Drug Dosing 119.0 ml/min Est GFR ( Amer) 114.8 ml/min Est GFR (Non-Af Amer) 99.0 ml/min BUN/Creatinine Ratio 20.0 (10-20) Glucose 108 H (70-99(Fasting)) mg/dl Calcium 8.8 (8.5-10.1) mg/dl Magnesium 1.6 L (1.7-2.4) mg/dl Total Bilirubin 0.5 (0.2-1.0) mg/dl AST 16 (13-39) U/L ALT 19 (7-52) U/L Alkaline Phosphatase 58 (34-104) U/L Troponin I High Sens 14.2 (0-20) pg/ml C-Reactive Protein < 0.50 (0-0.5) mg/dl Total Protein 6.4 (6.0-8.3) gm/dl Albumin 4.1 (3.4-5.0) gm/dl Globulin 2.3 L (2.5-4.0) gm/dl Albumin/Globulin Ratio 1.8 (0.9-2) Lipase 42 (11-82) U/L SARS-CoV-2, RNA, NAAT NEGATIVE (NEGATIVE) Blood Type B Positive Antibody Screen NEGATIVE Crossmatch See Detail MDM Narrative Physical exam and history were performed. Nursing notes, EMR, and Medication List were personally reviewed. Patient appears to have had black stools over the past several days after taking an aspirin product. Patient is pale on presentation but his vital signs are good. He is symptomatic with lightheadedness with certain movements. IV access was established and labs were obtained. He was started on Protonix, Pepcid, and given a GI cocktail. Type and cross were performed. The case was discussed with my attending who also independently evaluated the patient. The patient's blood work is as above and was reviewed. His hemoglobin has dropped from 8.5 to 8.2 over about 5 hours. He does not have elevation of his BUN at this point. Transaminases are not diagnostic. INR is normal. Stool studies were ordered, but the patient was not able to provide a sample while here in the ER. Troponin is normal. COVID is negative. Overall the patient does not appear well for discharge home. He has a concerning history for upper GI bleed and is symptomatic with his anemia. [facility] the patient here in the ER. Please see their dictation for further patient course, plan, and disposition. The chart was completed utilizing [employer] Voice Recognition Software. Grammatical errors, random word insertions, pronoun errors, and incomplete s entences are an occasional consequence of this system due to software limitations, ambient noise, and hardware issues. Any formal questions or concerns about the content, text, or information contained within the body of this dictation should be directly addressed to the provider for clarification. . Impression & Plan Symptomatic anemia, Black stool Discharge Plan Visit Data Chief Complaint: Referred by Doctor Stated Complaint: POSSIBLE BLEEDING ULCER ED Provider: Jhony Colin ED Midlevel Provider: Jonathan Salas Discharge Problem: Symptomatic anemia, Black stool Patient Disposition: Admitted As Inpatient Discharge Instructions Interventions: ED Discharge Assessment Last Done: 03/09/22 22:54
[2022-03-09 19:15] LABS: Alanine Aminotransferase 19 U/L (7-52); Albumin Globulin Ratio 1.8 (0.9-2); Albumin Level 4.1 gm/dl (3.4-5.0); Alkaline Phosphatase 58 U/L (34-104); Anion Gap 7 (3-11); Aspartate Aminotransferase 16 U/L (13-39); Bilirubin,Total 0.5 mg/dl (0.2-1.0); Blood Urea Nitrogen 19 mg/dl (6-23); C Reactive Protein < 0.50 mg/dl (0-0.5); Calcium 8.8 mg/dl (8.5-10.1); Carbon Dioxide 23 mmol/L (21-32); Chloride 107 mmol/L (98-107); Est GFR (African American) 114.8 ml/min; Globulin 2.3 gm/dl (2.5-4.0); Glucose 108 mg/dl (70-99(Fasting)); Lipase 42 U/L (11-82); Magnesium 1.6 mg/dl (1.7-2.4); Potassium 3.4 mmol/L (3.5-5.1); Sodium 137 mmol/L (136-145); Total Protein 6.4 gm/dl (6.0-8.3)
[2022-03-09 19:16] LABS: INR 1.1 (0.9-1.1); Partial Thromboplastin Ratio 0.8; Partial Thromboplastin Time 21.9 Seconds (21.0-31.0); Prothrombin Time 11.3 Seconds (9.0-12.0)
[2022-03-09] MEDS ORDERED: SODIUM CHLORIDE 0.9% 1000ML 1,000 ML IV SCH (19:30)
[2022-03-09 20:23] LABS: Troponin I High Sensitivity 14.2 pg/ml (0-20)
[2022-03-09] MEDS ORDERED: MAGNESIUM SULFATE / D5W 1 GM/100 ML BAG IV ONE (20:32)
[2022-03-09] MEDS ORDERED: POTASSIUM CHLORIDE CRTAB 20 MEQ TABCR PO STA (20:32)
--- NOTE | 2022-03-09 20:53 | History & Physical Report ---
Date of Service March 09, 2022 Assessment & Plan (1) Symptomatic anemia: Plan: Secondary to UGI B Differentials include NSAID gastritis, PUD Hypokalemia Past tobacco abuse Medical telemetry Transfuse 1 unit PRBC for now given symptomatic anemia IV PPI Patient counseled about adverse effects of NSAIDs on gastric mucosa. GI consult in a.m. Re: UGI B N.p.o. until patient seen by GI in a.m. in anticipation of endoscopic procedure. Replace potassium DVT prophylaxis. SCDs Re: GI bleed Full code Text document was generated using [employer] voice recognition software. It may contain grammatical or spelling errors. Kindly contact undersigned for clarification of any documentation item in question. History of Present Illness Chief Complaint: Melena Primary Care Provider: [facility] History obtained from patient and records. Medical history significant for past tobacco abuse. 4 days history of dark tarry stools without abdominal pain. Chest pain described as heartburn-like for which he took [id number] Mylanta. No shortness of breath. Patient with dizziness described as lightheadedness. No emesis. No fever, no chills. No unusual weight loss. Patient admits to taking at least 2 aspirin tablets a day for body aches and pains. Some OTC Aleve as well. Patient noted by girlfriend to be pale as well. Patient seen at [facility] and directed to ER for further evaluation. IV PPI administered at the ER for GI bleed. Medical History as above Surgical History : None Family History : DM Personal/Social history : Past tobacco abuse, occasional EtOH intake, [employer] employee Allergies Allergy/AdvReac Type Severity Reaction Status Date / Time No Known Allergies Allergy Unverified 03/09/22 18:31 Home Medications Medication Instructions Recorded Confirmed Type ibuprofen 200 mg tablet 200 mg PO Q6H #0 01/27/18 03/09/22 History Past Med/Surg History Medical History No chronic diseases present Surgical History No significant past surgical history Social History Smoking Status: Never smoker Hx Alcohol Use: No Hx Substance Use: Yes Last Used Substance: Days (ago) Preferred Language: Portuguese Communication Ability: Effective Research Program Internship Required: No Beliefs That Will Affect Care: None Current Living Situation: Other Current Living Situation Comment: lives with fiance Other Information That Helps Us Care for You: No Feels Safe at Home: Yes Assistive Devices: None Review of Systems Review of Systems: As per HPI, all other systems reviewed and negative Physical Exam Physical Exam: GENERAL: Comfortable, pleasant, no respiratory distress SKIN: Pallor, warm HEENT: Pale palpebral conjunctivae, no ptosis, dry buccal mucosa NECK : Supple, no tenderness CHEST : CTA, no tenderness HEART : RRR, no obvious murmurs ABDOMEN: Some distention, nontender EXTREMITIES : No LE swelling/tenderness, no other conspicuous deformities noted NEUROLOGIC : Coherent, no facial asymmetry, no other gross focality Results & Data Results & Data ([facility]) Vital Signs (Past 12 Hours) Vital Signs Temp Pulse Resp BP Pulse Ox 03/09/22 19:17 100 03/09/22 18:15 36.4 C L 97 H 16 135/77 99 Laboratory Results Laboratory Results WBC 8.52 K/uL (4.8-10.8) 03/09/22 18:40 RBC 2.73 M/uL (4.7-6.1) L 03/09/22 18:40 Hgb 8.2 g/dL (14.0-18.0) L 03/09/22 18:40 Hct 23.1 % (42-52) L 03/09/22 18:40 MCV 84.6 fL (80-100) 03/09/22 18:40 MCH 30.0 pg (25-34) 03/09/22 18:40 MCHC 35.5 g/dL (32-36) 03/09/22 18:40 RDW Std Deviation 41.5 fL (36.4-46.3) 03/09/22 18:40 RDW Coeff of Naa 13.7 % (11.5-14.5) 03/09/22 18:40 Plt Count 300 K/uL (130-400) 03/09/22 18:40 MPV 10.7 fL (7.4-10.4) H 03/09/22 18:40 Immature Gran % (Auto) 0.4 % 03/09/22 18:40 Neut % (Auto) 54.4 % 03/09/22 18:40 Lymph % (Auto) 37.8 % 03/09/22 18:40 Talbot % (Auto) 5.5 % 03/09/22 18:40 Eos % (Auto) 1.2 % 03/09/22 18:40 Baso % (Auto) 0.7 % 03/09/22 18:40 Neut # (Auto) 4.64 K/uL (1.4-6.5) 03/09/22 18:40 Lymph # (Auto) 3.22 K/uL (1.2-3.4) 03/09/22 18:40 Talbot # (Auto) 0.47 K/uL (0.11-0.59) 03/09/22 18:40 Eos # (Auto) 0.10 K/uL (0-0.5) 03/09/22 18:40 Baso # (Auto) 0.06 K/uL (0-0.2) 03/09/22 18:40 Immature Gran # (Auto) 0.03 K/uL (0.00-0.02) H 03/09/22 18:40 Absolute Nucleated RBC 0.03 K/uL (0-0) H 03/09/22 18:40 Nucleated RBC % (auto) 0.3 % 03/09/22 18:40 ESR 2 mm/hr (0-15) 03/09/22 18:40 PT 11.3 Seconds (9.0-12.0) 03/09/22 18:40 INR 1.1 (0.9-1.1) 03/09/22 18:40 APTT 21.9 Seconds (21.0-31.0) 03/09/22 18:40 PTT Ratio 0.8 03/09/22 18:40 Sodium 137 mmol/L (136-145) 03/09/22 18:45 Potassium 3.4 mmol/L (3.5-5.1) L 03/09/22 18:45 Chloride 107 mmol/L (98-107) 03/09/22 18:45 Carbon Dioxide 23 mmol/L (21-32) 03/09/22 18:45 Anion Gap 7 (3-11) 03/09/22 18:45 BUN 19 mg/dl (6-23) 03/09/22 18:45 Creatinine 0.95 mg/dl (0.6-1.4) 03/09/22 18:45 Est Cr Clr Drug Dosing 119.0 ml/min 03/09/22 18:45 Est GFR ( Amer) 114.8 ml/min 03/09/22 18:45 Est GFR (Non-Af Amer) 99.0 ml/min 03/09/22 18:45 BUN/Creatinine Ratio 20.0 (10-20) 03/09/22 18:45 Glucose 108 mg/dl (70-99(Fasting)) H 03/09/22 18:45 Calcium 8.8 mg/dl (8.5-10.1) 03/09/22 18:45 Magnesium 1.6 mg/dl (1.7-2.4) L 03/09/22 18:45 Total Bilirubin 0.5 mg/dl (0.2-1.0) 03/09/22 18:45 AST 16 U/L (13-39) 03/09/22 18:45 ALT 19 U/L (7-52) 03/09/22 18:45 Alkaline Phosphatase 58 U/L (34-104) 03/09/22 18:45 Troponin I High Sens 14.2 pg/ml (0-20) 03/09/22 18:45 C-Reactive Protein < 0.50 mg/dl (0-0.5) 03/09/22 18:45 Total Protein 6.4 gm/dl (6.0-8.3) 03/09/22 18:45 Albumin 4.1 gm/dl (3.4-5.0) 03/09/22 18:45 Globulin 2.3 gm/dl (2.5-4.0) L 03/09/22 18:45 Albumin/Globulin Ratio 1.8 (0.9-2) 03/09/22 18:45 Lipase 42 U/L (11-82) 03/09/22 18:45 SARS-CoV-2, RNA, NAAT NEGATIVE (NEGATIVE) 03/09/22 19:45 Diagnostic Findings Chest x-ray as per my interpretation: Atelectasis EKG as per my interpretation : Rate 75, NSR, normal axis, no ischemia
[2022-03-09] MEDS ORDERED: SODIUM CHLORIDE 0.9% 250 ML IV PRN (20:54)
[2022-03-09] MEDS ORDERED: ACETAMINOPHEN 325 MG TAB PO PRN (21:05)
[2022-03-09] MEDS ORDERED: PROMETHAZINE HCL 12.5 MG in SODIUM CHLORIDE 0.9% 50 ML IV PRN (21:08)
[2022-03-09] MEDS ORDERED: traMADol HCL 50 MG TABLET PO PRN (21:08)
[2022-03-09] MEDS ORDERED: LORazepam 2 MG/1 ML VIAL IV PRN (21:08)
--- NOTE | 2022-03-09 21:10 | Emergency Department Note ---
ED Visit Note I have personally evaluated this patient examined him and reviewed the pertinent labs and data. I have discussed the case with Jonathan Salas, the physician hardware sales assistant and agree with the plan. Please refer to the PA note. This patient was initially seen by Jonathan Salas my PA. The patient has a hemoglobin of 8.2 has had dark stools for several days he gets symptomatic when standing but at rest looks well. on my exam appears comfortable. He is nontachycardic and he is normotensive. He has had tarry dark stools and he has been taking aspirin for back pain so I do suspect this is an upper GI/peptic ulcer type issue. he does not drink. We did type and cross him for blood and he consented for transfusion as I think he will likely need 1 while in the hospital. We have consulted the hospitalist to see him the patient. .
[2022-03-09] MEDS: PANTOprazole 40 MG in DEXTROSE 5% 100 ML IV SCH (21:39)
[2022-03-09] MEDS: LACTATED RINGER'S 1,000 ML IV SCH (22:58)
[2022-03-10] MEDS: PANTOprazole 40 MG in DEXTROSE 5% 100 ML IV SCH ×5 (03:17→23:14)
[2022-03-10 06:07] LABS: Basophils # (auto) 0.05 K/uL (0-0.2); Basophils % (auto) 0.8 %; Eosinophils # (auto) 0.14 K/uL (0-0.5); Eosinophils % (auto) 2.2 %; Hematocrit (blood only) 21.1 % (42-52); Hemoglobin 7.4 g/dL (14.0-18.0); Immature Granulocytes # (auto) 0.01 K/uL (0.00-0.02); Immature Granulocytes % (auto) 0.2 %; Lymphocytes # (auto) 2.39 K/uL (1.2-3.4); Lymphocytes % (auto) 38.3 %; Mean Corpuscular Hemoglobin 30.1 pg (25-34); Mean Corpuscular Hgb Conc 35.1 g/dL (32-36); Mean Corpuscular Volume 85.8 fL (80-100); Mean Platelet Volume 10.7 fL (7.4-10.4); Monocytes # (auto) 0.55 K/uL (0.11-0.59); Monocytes % (auto) 8.8 %; Neutrophils % (auto) 49.7 %; Platelet Count 241 K/uL (130-400); RDW Coefficient of Variation 14.3 % (11.5-14.5); RDW Standard Deviation 43.6 fL (36.4-46.3); Red Blood Count 2.46 M/uL (4.7-6.1); White Blood Count 6.24 K/uL (4.8-10.8)
[2022-03-10 06:36] LABS: BUN Creatinine Ratio 14.3 (10-20); Calcium 8.1 mg/dl (8.5-10.1); Creatinine Clr Calc Pharmacy 124.2 ml/min; Est GFR (African American) 120.9 ml/min; Est GFR (Non-African American) 104.3 ml/min; Potassium 3.7 mmol/L (3.5-5.1)
[2022-03-10 06:40] LABS: RBC Morphology Unremarkable
--- NOTE | 2022-03-10 07:33 | XRay Report ---
XR chest 1V portable CLINICAL HISTORY: Atypical chest pain TECHNIQUE: Single frontal radiograph of the chest was obtained. Comparison: Comparison is made to chest radiograph 01/27/2018 FINDINGS: No lines and tubes are seen. The cardiomediastinal silhouette is normal. The lungs are clear. No evid ence of pleural effusion or pneumothorax. IMPRESSION: No acute chest disease. ACT 112: Negative or not required by law. Electronically signed by: Zion Curiel M.D. 03/10/2022 7:32 AM
[2022-03-10 09:22] LABS: Hematocrit (blood only) 22.7 % (42-52)
--- NOTE | 2022-03-10 09:54 | Hospitalist Progress Note ---
Date of Service March 10, 2022 Assessment & Plan (1) Symptomatic anemia: Plan: Symptomatic anemia, likely due to UGI bleed suspected PUD- he was taking melissa aspirin 500 mg upto two times daily for the past week and was having black tarry stool for 4 days. Quit smoking and drinking 2.5 years ago. Doesn't use NSAIDs or anticoagulation. Does have some GERD symptoms and uses OTC PPI as needed at home - Prior Hb 15 in 2018. On presentation 8.5->8.2->7.4->8, s/p 1 U PRBC overnight. PTT/INR normal, Plts normal. - follow up iron studies- if deficient, will replete although result might be skewed due to PRBC transfusion - B12 level pending - Avoid NSAIDs - Monitor H&H and bleeding, transfuse as indicated - Continue IV PPI, ivf, npo pending GI evaluation and UGI endoscopy Hypokalemia- resolved Hypomagnesemia- repeat level pending DVT prophylaxis. SCDs- chemoprophylaxis C/I in setting of bleeding requiring transfusion Full code Admission and Anticipated Discharge Date Admission Date: March 09, 2022 Subjective Feels better after the PRBC transfusion. Denies any more dizziness. No chest pain or shortness of breath. No more bowel movement since coming to the hospital. Physical Exam Physical Exam: General: Lying comfortably in bed, not in distress, on room air HEENT: EOMI, HAYLEY, MMM Chest: Clear breath sounds bilaterally, no wheezes or crackles CVS: Regular rate and rhythm, normal heart sounds, no murmur Abdomen: Soft, non tender, not distended, normal bowel sounds Neuro: Awake, alert, oriented, conversing well, non focal Extremities: No cyanosis, clubbing or edema Results & Data Results & Data ([facility]) Vital Signs (Past 12 Hours) Vital Signs Temp Pulse Pulse Resp BP BP Pulse Ox 03/10/22 06:28 36.6 C 69 18 113/54 L 99 03/10/22 02:41 36.3 C L 74 18 136/71 98 03/10/22 01:30 36.8 C 63 18 123/75 95 03/10/22 01:00 36.9 C 74 18 137/75 99 03/10/22 00:45 36.8 C 88 18 135/85 99 03/10/22 00:25 37 C 79 18 138/84 100 03/09/22 23:10 36.7 C 80 18 124/78 99 03/09/22 22:48 36.7 C 80 18 124/78 99 03/09/22 22:40 100 H Pulse Ox 03/10/22 06:28 03/10/22 02:41 03/10/22 01:30 03/10/22 01:00 03/10/22 00:45 03/10/22 00:25 03/09/22 23:10 03/09/22 22:48 99 03/09/22 22:40 Laboratory Results Short CBC 03/09/22 03/10/22 03/10/22 Range/Units 18:40 05:27 09:08 WBC 8.52 6.24 (4.8-10.8) K/uL Hgb 8.2 L 7.4 L 8.0 L (14.0-18.0) g/dL Hct 23.1 L 21.1 L 22.7 L (42-52) % Plt Count 300 241 (130-400) K/uL BMP 03/09/22 03/10/22 18:45 05:27 Sodium 137 139 Potassium 3.4 L 3.7 Chloride 107 111 H Carbon Dioxide 23 24 BUN 19 13 Creatinine 0.95 0.91 Glucose 108 H 95 Calcium 8.8 8.1 L Liver Function 03/09/22 Range/Units 18:45 Total Bilirubin 0.5 (0.2-1.0) mg/dl AST 16 (13-39) U/L ALT 19 (7-52) U/L Alkaline Phosphatase 58 (34-104) U/L Albumin 4.1 (3.4-5.0) gm/dl Diagnostic Findings Chest X-Ray 03/09/22 20:53 XR chest 1V portable CLINICAL HISTORY: Atypical chest pain TECHNIQUE: Single frontal radiograph of the chest was obtained. Comparison: Comparison is made to chest radiograph 01/27/2018 FINDINGS: No lines and tubes are seen. The cardiomediastinal silhouette is normal. The lungs are clear. No evidence of pleural effusion or pneumothorax. IMPRESSION: No acute chest disease. ACT 112: Negative or not required by law. Electronically signed by: Zion Curiel M.D. 03/10/2022 7:32 AM Medications Administered Current Inpatient Medications Acetaminophen (Acetaminophen 325 Mg Tab) 650 mg PO Q4H PRN PRN Reason: Pain or Fever Stop: 04/08/22 21:04 Pantoprazole Sodium 40 mg/ (Dextrose) 100 mls @ 20 mls/hr IV Q5H MANUEL Stop: 04/08/22 20:44 Last Admin: 03/10/22 08:35 Dose: 8 mg/hr, 20 mls/hr Documented by: Promethazine HCl 12.5 mg/ (Sodium Chloride) 50.5 mls @ 202 mls/hr IV Q6H PRN PRN Reason: Nausea And Vomiting Stop: 04/08/22 21:07 Lactated Ringer's (Lr) 1,000 mls @ 60 mls/hr IV .[id number] MANUEL Stop: 04/08/22 21:14 Last Admin: 03/09/22 22:58 Dose: 60 mls/hr Documented by: Lorazepam (Lorazepam 2 Mg/1 Ml Vial) 0.5 mg IV Q4H PRN; Protocol PRN Reason: Anxiety Stop: 04/08/22 21:07 Tramadol HCl (Tramadol Hcl 50 Mg Tablet) 25 - 50 mg PO Q4H PRN PRN Reason: Pain Stop: 04/08/22 21:07
[2022-03-10 10:05] LABS: Magnesium 1.5 mg/dl (1.7-2.4)
[2022-03-10 10:19] LABS: Ferritin 14.3 ng/ml (8-388)
--- NOTE | 2022-03-10 10:53 | Gastrointestinal Consultation ---
Date of Consultation March 10, 2022 Assessment & Plan (1) Symptomatic anemia: (2) Black stool: 42-year-old male with no significant past medical history had, has been taking some NSAIDs [id number] for some back pain, and developed black solid stool for several days, and presented to the ER with anemia; had some lightheadedness prior to arrival. Overnight has had no GI output, hemoglobin improved to 8 with 1 unit of blood transfused. His BUN is normal on exam, abdomen is soft and nontender. Given his clinical presentation, question whether he had an upper GI bleed event. He has risk factors for PUD including recent NSAID use, also has chronic untreated GERD. - Agree with IV PPI Trend H&H, transfuse as needed Monitor and document GI output - Can have clears today, n.p.o. at midnight We will plan for EGD tomorrow to evaluate for a source of upper GI bleeding Thank you for allowing us to participate in the care of this patient. Please call with any acute changes, questions or concerns. Please see addendum below with additional recommendation from my supervising physician. Supervising Physician Co-Signing Physician Notes Late entry: Patient was seen and examined on 03/10 with Maria Moreira PA-C whose note reflects our findings and plan. Patient with black stool at home in the setting of regular daily NSAIDs in high doses but BUN curiously normal. Hgb 8.5 on admission. Dropped to 7's. Unsure of baseline. PPI gtt. EGD Thursday. Abd exam is benign. Concern for PUD. History of Present Illness Reason for Consultation: ugib Requesting Physician: Dr. Waldron Attending Physician: Jonathan Caro MD History of Present Illness This a 42-year-old male with no significant past medical history other than some tobacco use, who had been taking several Hai aspirin products daily for the last few weeks for some back pain. Several days ago he developed black stool which he states was solid. He had approximately 2 episodes per day for several days. He presented to the emergency room, and hemoglobin was found to 8.5. He does not have any recent lab work to compare this to. Overnight hemoglobin 7.4, now 8.0, he did get 1 unit of blood transfusion. His BUN is normal. He admits to chronic untreated GERD, takes Mylanta and omeprazole as needed, not religiously. He does also take Aleve every now and then for some back pain, he cannot tell me how often or when was the last dose that he took this. Former smoker. No EtOH or other AC use. No history of abdominal surgery no history of prior endoscopy. Typically has regular formed bowel movements which are brown. Denies a prior history of any dark or bloody stools. Currently denies abdominal pain. No BM overnight, so his last dark stool was yesterday. Denies nausea vomiting, hematemesis, hematochezia or melena, dysphagia or odynophagia, abdominal cramping, chest pain or shortness of breath. He had some lightheadedness prior to coming into the hospital but this appears to be a little bit better today. He is hemodynamically stable and resting comfortably in bed. Allergies Allergy/AdvReac Type Severity Reaction Status Date / Time No Known Allergies Allergy Unverified 03/11/22 08:13 Home Medications Medication Instructions Recorded Confirmed Type ibuprofen 200 mg tablet 200 mg PO Q6H #0 01/27/18 03/09/22 History Patient History Medical History No chronic diseases present Surgical History No significant past surgical history Social History Smoking Status: Never smoker Hx Alcohol Use: No Hx Substance Use: Yes Last Used Substance: Days (ago) Preferred Language: Kiswahili Communication Ability: Effective Sandwich Hand Required: No Beliefs That Will Affect Care: None Current Living Situation: Other Current Living Situation Comment: lives with fiance Other Information That Helps Us Care for You: No Feels Safe at Home: Yes Assistive Devices: None Review of Systems Review of Systems: All systems reviewed & are unremarkable except as noted in HPI & below Physical Exam Constitutional: WD/WN, vitals as above Eyes: PERRL, conjunctivae normal, anicteric sclerae ENMT: external ear and nose normal, oropharynx normal Respiratory: normal respiratory effort, lungs clear to auscultation Cardiovascular: RRR, no murmur, no edema Gastrointestinal (Abdomen): normal bowel sounds, soft, nontender, no hepatosplenomegaly Skin: no rashes, warm and dry Psychiatric: A+Ox3, euthymic affect Results & Data ([facility]) Vital Signs (Past 12 Hours) Vital Signs Temp Pulse Pulse Resp BP BP Pulse Ox 03/10/22 06:28 36.6 C 69 18 113/54 L 99 03/10/22 02:41 36.3 C L 74 18 136/71 98 03/10/22 01:30 36.8 C 63 18 123/75 95 03/10/22 01:00 36.9 C 74 18 137/75 99 03/10/22 00:45 36.8 C 88 18 135/85 99 03/10/22 00:25 37 C 79 18 138/84 100 03/09/22 23:10 36.7 C 80 18 124/78 99 03/09/22 22:48 36.7 C 80 18 124/78 99 03/09/22 22:40 100 H Pulse Ox 03/10/22 06:28 03/10/22 02:41 03/10/22 01:30 03/10/22 01:00 03/10/22 00:45 03/10/22 00:25 03/09/22 23:10 03/09/22 22:48 99 03/09/22 22:40 Laboratory Results 03/10/22 03/10/22 03/10/22 Range/Units 09:08 09:08 09:08 WBC (4.8-10.8) K/uL RBC (4.7-6.1) M/uL Hgb 8.0 L (14.0-18.0) g/dL Hct 22.7 L (42-52) % MCV (80-100) fL MCH (25-34) pg MCHC (32-36) g/dL RDW Std Deviation (36.4-46.3) fL RDW Coeff of Naa (11.5-14.5) % Plt Count (130-400) K/uL MPV (7.4-10.4) fL Immature Gran % (Auto) % Neut % (Auto) % Lymph % (Auto) % Mcclain % (Auto) % Eos % (Auto) % Baso % (Auto) % Neut # (Auto) (1.4-6.5) K/uL Lymph # (Auto) (1.2-3.4) K/uL Mcclain # (Auto) (0.11-0.59) K/uL Eos # (Auto) (0-0.5) K/uL Baso # (Auto) (0-0.2) K/uL Immature Gran # (Auto) (0.00-0.02) K/uL Absolute Nucleated RBC (0-0) K/uL Nucleated RBC % (auto) % RBC Morphology ESR (0-15) mm/hr PT (9.0-12.0) Seconds INR (0.9-1.1) APTT (21.0-31.0) Seconds PTT Ratio Sodium (136-145) mmol/L Potassium (3.5-5.1) mmol/L Chloride (98-107) mmol/L Carbon Dioxide (21-32) mmol/L Anion Gap (3-11) BUN (6-23) mg/dl Creatinine (0.6-1.4) mg/dl Est Cr Clr Drug Dosing ml/min Est GFR ( Amer) ml/min Est GFR (Non-Af Amer) ml/min BUN/Creatinine Ratio (10-20) Glucose (70-99(Fasting)) mg/dl Calcium (8.5-10.1) mg/dl Magnesium 1.5 L (1.7-2.4) mg/dl Iron 43 (35-175) mcg/dl Unsaturated IBC 322 (155-355) mcg/dl Ferritin 14.3 (8-388) ng/ml Total Bilirubin (0.2-1.0) mg/dl AST (13-39) U/L ALT (7-52) U/L Alkaline Phosphatase (34-104) U/L Troponin I High Sens (0-20) pg/ml C-Reactive Protein (0-0.5) mg/dl Total Protein (6.0-8.3) gm/dl Albumin (3.4-5.0) gm/dl Globulin (2.5-4.0) gm/dl Albumin/Globulin Ratio (0.9-2) Lipase (11-82) U/L Vitamin B12 415 (180-914) pg/ml SARS-CoV-2, RNA, NAAT (NEGATIVE) Blood Type Blood Type Recheck Antibody Screen Crossmatch 03/10/22 03/10/22 03/09/22 Range/Units 05:27 05:27 21:35 WBC 6.24 (4.8-10.8) K/uL RBC 2.46 L (4.7-6.1) M/uL Hgb 7.4 L (14.0-18.0) g/dL Hct 21.1 L (42-52) % MCV 85.8 (80-100) fL MCH 30.1 (25-34) pg MCHC 35.1 (32-36) g/dL RDW Std Deviation 43.6 (36.4-46.3) fL RDW Coeff of Naa 14.3 (11.5-14.5) % Plt Count 241 (130-400) K/uL MPV 10.7 H (7.4-10.4) fL Immature Gran % (Auto) 0.2 % Neut % (Auto) 49.7 % Lymph % (Auto) 38.3 % Mcclain % (Auto) 8.8 % Eos % (Auto) 2.2 % Baso % (Auto) 0.8 % Neut # (Auto) 3.10 (1.4-6.5) K/uL Lymph # (Auto) 2.39 (1.2-3.4) K/uL Mcclain # (Auto) 0.55 (0.11-0.59) K/uL Eos # (Auto) 0.14 (0-0.5) K/uL Baso # (Auto) 0.05 (0-0.2) K/uL Immature Gran # (Auto) 0.01 (0.00-0.02) K/uL Absolute Nucleated RBC (0-0) K/uL Nucleated RBC % (auto) % RBC Morphology Unremarkable ESR (0-15) mm/hr PT (9.0-12.0) Seconds INR (0.9-1.1) APTT (21.0-31.0) Seconds PTT Ratio Sodium 139 (136-145) mmol/L Potassium 3.7 (3.5-5.1) mmol/L Chloride 111 H (98-107) mmol/L Carbon Dioxide 24 (21-32) mmol/L Anion Gap 4 (3-11) BUN 13 (6-23) mg/dl Creatinine 0.91 (0.6-1.4) mg/dl Est Cr Clr Drug Dosing 124.2 ml/min Est GFR ( Amer) 120.9 ml/min Est GFR (Non-Af Amer) 104.3 ml/min BUN/Creatinine Ratio 14.3 (10-20) Glucose 95 (70-99(Fasting)) mg/dl Calcium 8.1 L (8.5-10.1) mg/dl Magnesium (1.7-2.4) mg/dl Iron (35-175) mcg/dl Unsaturated IBC (155-355) mcg/dl Ferritin (8-388) ng/ml Total Bilirubin (0.2-1.0) mg/dl AST (13-39) U/L ALT (7-52) U/L Alkaline Phosphatase (34-104) U/L Troponin I High Sens (0-20) pg/ml C-Reactive Protein (0-0.5) mg/dl Total Protein (6.0-8.3) gm/dl Albumin (3.4-5.0) gm/dl Globulin (2.5-4.0) gm/dl Albumin/Globulin Ratio (0.9-2) Lipase (11-82) U/L Vitamin B12 (180-914) pg/ml SARS-CoV-2, RNA, NAAT (NEGATIVE) Blood Type Blood Type Recheck B Positive Antibody Screen Crossmatch 03/09/22 03/09/22 03/09/22 Range/Units 19:45 19:03 18:45 WBC (4.8-10.8) K/uL RBC (4.7-6.1) M/uL Hgb (14.0-18.0) g/dL Hct (42-52) % MCV (80-100) fL MCH (25-34) pg MCHC (32-36) g/dL RDW Std Deviation (36.4-46.3) fL RDW Coeff of Naa (11.5-14.5) % Plt Count (130-400) K/uL MPV (7.4-10.4) fL Immature Gran % (Auto) % Neut % (Auto) % Lymph % (Auto) % Mcclain % (Auto) % Eos % (Auto) % Baso % (Auto) % Neut # (Auto) (1.4-6.5) K/uL Lymph # (Auto) (1.2-3.4) K/uL Mcclain # (Auto) (0.11-0.59) K/uL Eos # (Auto) (0-0.5) K/uL Baso # (Auto) (0-0.2) K/uL Immature Gran # (Auto) (0.00-0.02) K/uL Absolute Nucleated RBC (0-0) K/uL Nucleated RBC % (auto) % RBC Morphology ESR (0-15) mm/hr PT (9.0-12.0) Seconds INR (0.9-1.1) APTT (21.0-31.0) Seconds PTT Ratio Sodium 137 (136-145) mmol/L Potassium 3.4 L (3.5-5.1) mmol/L Chloride 107 (98-107) mmol/L Carbon Dioxide 23 (21-32) mmol/L Anion Gap 7 (3-11) BUN 19 (6-23) mg/dl Creatinine 0.95 (0.6-1.4) mg/dl Est Cr Clr Drug Dosing 119.0 ml/min Est GFR ( Amer) 114.8 ml/min Est GFR (Non-Af Amer) 99.0 ml/min BUN/Creatinine Ratio 20.0 (10-20) Glucose 108 H (70-99(Fasting)) mg/dl Calcium 8.8 (8.5-10.1) mg/dl Magnesium 1.6 L (1.7-2.4) mg/dl Iron (35-175) mcg/dl Unsaturated IBC (155-355) mcg/dl Ferritin (8-388) ng/ml Total Bilirubin 0.5 (0.2-1.0) mg/dl AST 16 (13-39) U/L ALT 19 (7-52) U/L Alkaline Phosphatase 58 (34-104) U/L Troponin I High Sens 14.2 (0-20) pg/ml C-Reactive Protein < 0.50 (0-0.5) mg/dl Total Protein 6.4 (6.0-8.3) gm/dl Albumin 4.1 (3.4-5.0) gm/dl Globulin 2.3 L (2.5-4.0) gm/dl Albumin/Globulin Ratio 1.8 (0.9-2) Lipase 42 (11-82) U/L Vitamin B12 (180-914) pg/ml SARS-CoV-2, RNA, NAAT NEGATIVE (NEGATIVE) Blood Type B Positive Blood Type Recheck Antibody Screen NEGATIVE Crossmatch See Detail 03/09/22 03/09/22 03/09/22 Range/Units 18:40 18:40 18:40 WBC 8.52 (4.8-10.8) K/uL RBC 2.73 L (4.7-6.1) M/uL Hgb 8.2 L (14.0-18.0) g/dL Hct 23.1 L (42-52) % MCV 84.6 (80-100) fL MCH 30.0 (25-34) pg MCHC 35.5 (32-36) g/dL RDW Std Deviation 41.5 (36.4-46.3) fL RDW Coeff of Naa 13.7 (11.5-14.5) % Plt Count 300 (130-400) K/uL MPV 10.7 H (7.4-10.4) fL Immature Gran % (Auto) 0.4 % Neut % (Auto) 54.4 % Lymph % (Auto) 37.8 % Mcclain % (Auto) 5.5 % Eos % (Auto) 1.2 % Baso % (Auto) 0.7 % Neut # (Auto) 4.64 (1.4-6.5) K/uL Lymph # (Auto) 3.22 (1.2-3.4) K/uL Mcclain # (Auto) 0.47 (0.11-0.59) K/uL Eos # (Auto) 0.10 (0-0.5) K/uL Baso # (Auto) 0.06 (0-0.2) K/uL Immature Gran # (Auto) 0.03 H (0.00-0.02) K/uL Absolute Nucleated RBC 0.03 H (0-0) K/uL Nucleated RBC % (auto) 0.3 % RBC Morphology ESR 2 (0-15) mm/hr PT 11.3 (9.0-12.0) Seconds INR 1.1 (0.9-1.1) APTT 21.9 (21.0-31.0) Seconds PTT Ratio 0.8 Sodium (136-145) mmol/L Potassium (3.5-5.1) mmol/L Chloride (98-107) mmol/L Carbon Dioxide (21-32) mmol/L Anion Gap (3-11) BUN (6-23) mg/dl Creatinine (0.6-1.4) mg/dl Est Cr Clr Drug Dosing ml/min Est GFR ( Amer) ml/min Est GFR (Non-Af Amer) ml/min BUN/Creatinine Ratio (10-20) Glucose (70-99(Fasting)) mg/dl Calcium (8.5-10.1) mg/dl Magnesium (1.7-2.4) mg/dl Iron (35-175) mcg/dl Unsaturated IBC (155-355) mcg/dl Ferritin (8-388) ng/ml Total Bilirubin (0.2-1.0) mg/dl AST (13-39) U/L ALT (7-52) U/L Alkaline Phosphatase (34-104) U/L Troponin I High Sens (0-20) pg/ml C-Reactive Protein (0-0.5) mg/dl Total Protein (6.0-8.3) gm/dl Albumin (3.4-5.0) gm/dl Globulin (2.5-4.0) gm/dl Albumin/Globulin Ratio (0.9-2) Lipase (11-82) U/L Vitamin B12 (180-914) pg/ml SARS-CoV-2, RNA, NAAT (NEGATIVE) Blood Type Blood Type Recheck Antibody Screen Crossmatch Diagnostic Findings CXR No acute chest disease.
[2022-03-10] MEDS: LACTATED RINGER'S 1,000 ML IV SCH (14:43)
[2022-03-10] MEDS ORDERED: IRON SUCROSE 400 MG in SODIUM CHLORIDE 0.9% 250 ML IV SCH (18:30)
[2022-03-10] MEDS ORDERED: MAGNESIUM SULFATE / D5W 1 GM/100 ML BAG IV ONE (18:31)
[2022-03-10] MEDS: MAGNESIUM OXIDE 400 MG TAB PO SCH (20:52)
[2022-03-10 21:21] LABS: Hematocrit (blood only) 25.3 % (42-52); Hemoglobin 8.7 g/dL (14.0-18.0)
[2022-03-11] MEDS: PANTOprazole 40 MG in DEXTROSE 5% 100 ML IV SCH ×2 (04:57→13:21)
[2022-03-11 06:51] LABS: Hematocrit (blood only) 23.4 % (42-52); Hemoglobin 7.9 g/dL (14.0-18.0); Mean Corpuscular Hgb Conc 33.8 g/dL (32-36); Mean Platelet Volume 10.3 fL (7.4-10.4); Platelet Count 283 K/uL (130-400); Red Blood Count 2.72 M/uL (4.7-6.1); White Blood Count 6.12 K/uL (4.8-10.8)
[2022-03-11 07:23] LABS: BUN Creatinine Ratio 12.6 (10-20); Calcium 8.5 mg/dl (8.5-10.1); Est GFR (African American) 114.8 ml/min; Potassium 3.9 mmol/L (3.5-5.1)
--- NOTE | 2022-03-11 08:19 | Anesthesiology Consultation ---
Date of Service March 11, 2022 Assessment & Plan Chart Review Chart Review: Acceptable Risk for Surgery, Patient NOT seen in Pre Admission Testing and medical data entry clerk initiated Consults Requested none History Surgery Operation Date: 03/11/22 16:30 Proposed Procedures p Esophagogastroduodenoscopy Dr Diaz - Lauren Diaz, DO Height/Weight Height: 6 ft 2 in Weight: 88.5 kg Allergies Allergy/AdvReac Type Severity Reaction Status Date / Time No Known Allergies Allergy Unverified 03/11/22 08:13 Medications Home Medications Medication Instructions Recorded Confirmed Last Taken ibuprofen 200 mg tablet 200 mg PO Q6H #0 01/27/18 03/09/22 Unknown Active Medications Generic Name Dose Route Start Last Admin Trade Name Freq PRN Reason Stop Dose Admin Pantoprazole Sodium 40 mg/ 100 mls @ 20 mls/hr 03/09/22 20:45 03/11/22 07:50 Dextrose IV 04/08/22 20:44 0 mg/hr Q5H MANUEL 0 mls/hr Infusion 8 MG/HR Lactated Ringer's 1,000 mls @ 60 mls/hr 03/09/22 21:15 03/11/22 07:50 Lr IV 04/08/22 21:14 Infused .[id number] MANUEL Infusion Iron Sucrose 400 mg/ Sodium 270 mls @ 108 mls/hr 03/10/22 18:30 03/11/22 00:04 Chloride IV 03/12/22 18:29 Infused Q24H MANUEL Infusion Magnesium Oxide 400 mg 03/10/22 21:00 03/10/22 20:52 Magnesium Oxide 400 Mg Tab PO 04/09/22 20:59 400 mg BID MANUEL Administration Past Medical History Medical History No chronic diseases present Past Surgical History Surgical History No significant past surgical history Social History Smoking Status: Never smoker Hx Alcohol Use: No Hx Substance Use: Yes substance use type: marijuana Last Used Substance: Days (ago) Physical Exam Vital Signs Last Vital Signs Temp 36.6 C 03/11/22 06:42 Pulse 54 L 03/11/22 08:03 Resp 18 03/11/22 06:42 BP 103/62 06/07/22 06:42 Pulse Ox 98 03/11/22 06:42 Testing Laboratory Results 03/11/22 06:26 03/11/22 06:26 PT 11.3 Seconds (9.0-12.0) 03/09/22 18:40 INR 1.1 (0.9-1.1) 03/09/22 18:40 APTT 21.9 Seconds (21.0-31.0) 03/09/22 18:40 Blood Type B Positive 03/09/22 19:03 Antibody Screen NEGATIVE 03/09/22 19:03 Electrocardiogram Date: 03/09/22 Normal sinus rhythm with sinus arrhythmia Normal ECG When compared with ECG of 27-JAN-2018 16:50, Vent. rate has increased BY 25 BPM Chest X-Ray Date: 03/09/22 CLINICAL HISTORY: Atypical chest pain TECHNIQUE: Single frontal radiograph of the chest was obtained. Comparison: Comparison is made to chest radiograph 01/27/2018 FINDINGS: No lines and tubes are seen. The cardiomediastinal silhouette is normal. The lungs are clear. No evidence of pleural effusion or pneumothorax. IMPRESSION: No acute chest disease.
--- NOTE | 2022-03-11 08:57 | History & Physical Report ---
Date of Service March 11, 2022 Assessment & Plan (1) Black stool: Plan: EGD today PPI (2) Symptomatic anemia: Admission and Anticipated Discharge Date Admission Date: March 09, 2022 History of Present Illness Chief Complaint: UGI bleed on NSAIDS Primary Care Provider: NO PCP UGI bleed on NSAIDs Allergies Allergy/AdvReac Type Severity Reaction Status Date / Time No Known Allergies Allergy Unverified 03/11/22 08:13 Home Medications Medication Instructions Recorded Confirmed Type ibuprofen 200 mg tablet 200 mg PO Q6H #0 01/27/18 03/09/22 History Past Med/Surg History Medical History No chronic diseases present Surgical History No significant past surgical history Social History Smoking Status: Never smoker Hx Alcohol Use: No Hx Substance Use: Yes Last Used Substance: Days (ago) Preferred Language: Afghan Communication Ability: Effective Life Manager Required: No Beliefs That Will Affect Care: None Current Living Situation: Other Current Living Situation Comment: lives with fiance Other Information That Helps Us Care for You: No Feels Safe at Home: Yes Assistive Devices: None Results & Data ([facility]) Vital Signs (Past 12 Hours) Vital Signs Temp Pulse Pulse Pulse Resp BP Pulse Ox 03/11/22 08:13 36.8 C 62 16 125/78 100 03/11/22 08:03 54 L 03/11/22 06:42 36.6 C 58 L 18 103/62 98 03/11/22 03:33 36.3 C L 60 18 109/54 L 98 03/10/22 22:50 36.5 C 63 18 127/78 98 Code Status & VTE Plan VTE Prophylaxis Plan VTE Prophylaxis will be ordered: Yes
--- NOTE | 2022-03-11 09:17 | GI REPORT ---
Patient Name: Dilip Post Procedure Date: 03/11/2022 8:22 AM Date of : 1980 Admit Type: Inpatient Age: 42 Gender: Male Attending MD: Lauren Diaz DO Procedure: Upper GI endoscopy Providers: Lauren Diaz DO Referring MD: Jonathan Caro Md Indications: Acute post hemorrhagic anemia, Melena Medicines: Propofol per Anesthesia Complications: No immediate complications. Estimated blood loss: None. Estimated Blood Loss: Estimated blood loss: none. Procedure: Pre-Anesthesia Assessment: - Prior to the procedure, a History and Physical was performed, and patient medications, allergies and sensitivities were reviewed. The patient's tolerance of previous anesthesia was reviewed. - The risks and benefits of the procedure and the sedation options and risks were discussed with the patient. All questions were answered and informed consent was obtained. - Patient identification and proposed procedure were verified prior to the procedure by the physician and the nurse. The procedure was verified in the pre-procedure area in the procedure room. - Mental Status Examination: alert and oriented. Airway Examination: normal oropharyngeal airway and neck mobility. Respiratory Examination: clear to auscultation. CV Examination: normal. Abdominal Examination: bowel sounds present, abdomen soft and non-tender, no masses or organomegaly noted. - ASA Grade Assessment: II - A patient with mild systemic disease. After obtaining informed consent, the endoscope was passed under direct vision. Throughout the procedure, the patient's blood pressure, pulse, and oxygen saturations were monitored continuously. The Endoscope was introduced through the mouth, and advanced to the second part of duodenum. The upper GI endoscopy was accomplished without difficulty. The patient tolerated the procedure well. Findings: Non-severe esophagitis with no bleeding was found at the gastroesophageal junction. The stomach was normal. The examined duodenum was normal. Impression: - Non-severe reflux esophagitis. - Gastritis. - No fresh or altered blood. - Normal examined duodenum. - No specimens collected. Recommendation: - Follow an antireflux regimen. - Use a proton pump inhibitor PO BID. - Avoidance of NSAIDs. - Perform a colonoscopy as an outpatient. - Resume regular diet. - [facility] for possible discharge same day. Lauren Diaz, Jose Martin.O. Lauren Diaz DO 03/11/2022 9:17:23 AM This report has been signed electronically. Note Initiated On: 03/11/2022 8:22 AM Number of Addenda: 0 I attest to the content of the Intraoperative Record and orders documented therein, exceptions below {[id number]}
[2022-03-11] MEDS ORDERED: PROPOFOL IV EMULSION 10 MG/ML 20 ML VIAL IV ONE (09:48)
[2022-03-11] MEDS ORDERED: LIDOCAINE 2% 2 ML VIAL/AMP(20MG/ML) INFIL ONE (09:48)
[2022-03-11] MEDS: MAGNESIUM OXIDE 400 MG TAB PO SCH (09:49)
[2022-03-11] MEDS: LACTATED RINGER'S 1,000 ML IV SCH (10:43)
[2022-03-11] MEDS ORDERED: IRON SUCROSE 400 MG in SODIUM CHLORIDE 0.9% 250 ML IV ONE (11:30)
--- NOTE | 2022-03-11 13:29 | Anesthesiology Progress Note ---
Date of Service March 11, 2022 Anesthesia Post Procedure Vital Signs Vital Signs: Temp Pulse Pulse Pulse Resp BP Pulse Ox 03/11/22 11:10 36.5 C 69 18 117/62 99 03/11/22 10:35 36.4 C L 56 L 18 120/77 100 03/11/22 09:43 68 16 114/61 98 03/11/22 09:28 77 16 113/66 97 03/11/22 09:15 36.5 C 87 16 105/58 L 96 03/11/22 08:13 36.8 C 62 16 125/78 100 03/11/22 08:03 54 L 03/11/22 06:42 36.6 C 58 L 18 103/62 98 03/11/22 03:33 36.3 C L 60 18 109/54 L 98 03/10/22 22:50 36.5 C 63 18 127/78 98 03/10/22 18:27 36.4 C L 81 20 136/77 100 03/10/22 15:28 36.8 C 69 18 127/79 99 03/10/22 14:17 73 Pain Intensity Throat: Pain Intensity: 2 Transfer of Care Handoff Completed per policy Notes Mental Status: alert / awake / arousable and participated in evaluation Patient Amnestic to Procedure: Yes Nausea / Vomiting: adequately controlled Pain: adequately controlled Airway Patency, RR, SpO2: stable & adequate BP & HR: stable & adequate Hydration State: stable & adequate Anesthetic Complications: no major complications apparent and Pt Satisfied with anesthetic care
[2022-03-11 14:57] LABS: Hematocrit (blood only) 25.7 % (42-52); Hemoglobin 8.8 g/dL (14.0-18.0)
--- NOTE | 2022-03-11 16:12 | Discharge Summary ---
Date of Service March 11, 2022 Admission HPI Per Admitting Provider Chief Complaint: Melena Primary Care Provider: [facility] History obtained from patient and records. Medical history significant for past tobacco abuse. 4 days history of dark tarry stools without abdominal pain. Chest pain described as heartburn-like for which he took [id number] Mylanta. No shortness of breath. Patient with dizziness described as lightheadedness. No emesis. No fever, no chills. No unusual weight loss. Patient admits to taking at least 2 aspirin tablets a day for body aches and pains. Some OTC Aleve as well. Patient noted by girlfriend to be pale as well. Patient seen at [facility] and directed to ER for further evaluation. IV PPI administered at the ER for GI bleed. Admission Exam Per Admitting Provider GENERAL: Comfortable, pleasant, no respiratory distress SKIN: Pallor, warm HEENT: Pale palpebral conjunctivae, no ptosis, dry buccal mucosa NECK : Supple, no tenderness CHEST : CTA, no tenderness HEART : RRR, no obvious murmurs ABDOMEN: Some distention, nontender EXTREMITIES : No LE swelling/tenderness, no other conspicuous deformities noted NEUROLOGIC : Coherent, no facial asymmetry, no other gross focality Principal Diagnosis Acute blood loss anemia due to GI bleed, iron deficiency Discharge Exam General: Lying comfortably in bed, not in distress, on room air HEENT: EOMI, HAYLEY, MMM Chest: Clear breath sounds bilaterally, no wheezes or crackles CVS: Regular rate and rhythm, normal heart sounds, no murmur Abdomen: Soft, non tender, not distended, normal bowel sounds Neuro: Awake, alert, oriented, conversing well, non focal Extremities: No cyanosis, clubbing or edema Discharge Data Allergies Allergy/AdvReac Type Severity Reaction Status Date / Time No Known Allergies Allergy Unverified 03/11/22 08:13 Consultations 03/09/22 19:38 ED Decision to Admit Stat 03/09/22 22:48 Consult Gastroenterology Routine Procedures Performed Operation Date: 03/11/22 16:30 Actual Procedures p Esophagogastroduodenoscopy - Lauren Diaz, Ordered Studies Laboratory Results WBC 6.12 K/uL (4.8-10.8) 03/11/22 06:26 RBC 2.72 M/uL (4.7-6.1) L 03/11/22 06:26 Hgb 8.8 g/dL (14.0-18.0) L 03/11/22 14:12 Hct 25.7 % (42-52) L 03/11/22 14:12 MCV 86.0 fL (80-100) 03/11/22 06:26 MCH 29.0 pg (25-34) 03/11/22 06:26 MCHC 33.8 g/dL (32-36) 03/11/22 06:26 RDW Std Deviation 45.0 fL (36.4-46.3) 03/11/22 06:26 RDW Coeff of Naa 15.0 % (11.5-14.5) H 03/11/22 06:26 Plt Count 283 K/uL (130-400) 03/11/22 06:26 MPV 10.3 fL (7.4-10.4) 03/11/22 06:26 Immature Gran % (Auto) 0.2 % 03/10/22 05:27 Neut % (Auto) 49.7 % 03/10/22 05:27 Lymph % (Auto) 38.3 % 03/10/22 05:27 Burnett % (Auto) 8.8 % 03/10/22 05:27 Eos % (Auto) 2.2 % 03/10/22 05:27 Baso % (Auto) 0.8 % 03/10/22 05:27 Neut # (Auto) 3.10 K/uL (1.4-6.5) 03/10/22 05:27 Lymph # (Auto) 2.39 K/uL (1.2-3.4) 03/10/22 05:27 Burnett # (Auto) 0.55 K/uL (0.11-0.59) 03/10/22 05:27 Eos # (Auto) 0.14 K/uL (0-0.5) 03/10/22 05:27 Baso # (Auto) 0.05 K/uL (0-0.2) 03/10/22 05:27 Immature Gran # (Auto) 0.01 K/uL (0.00-0.02) 03/10/22 05:27 Absolute Nucleated RBC 0.03 K/uL (0-0) H 03/09/22 18:40 Nucleated RBC % (auto) 0.3 % 03/09/22 18:40 RBC Morphology Unremarkable 03/10/22 05:27 ESR 2 mm/hr (0-15) 03/09/22 18:40 PT 11.3 Seconds (9.0-12.0) 03/09/22 18:40 INR 1.1 (0.9-1.1) 03/09/22 18:40 APTT 21.9 Seconds (21.0-31.0) 03/09/22 18:40 PTT Ratio 0.8 03/09/22 18:40 Sodium 140 mmol/L (136-145) 03/11/22 06:26 Potassium 3.9 mmol/L (3.5-5.1) 03/11/22 06:26 Chloride 109 mmol/L (98-107) H 03/11/22 06:26 Carbon Dioxide 27 mmol/L (21-32) 03/11/22 06:26 Anion Gap 4 (3-11) 03/11/22 06:26 BUN 12 mg/dl (6-23) 03/11/22 06:26 Creatinine 0.95 mg/dl (0.6-1.4) 03/11/22 06:26 Est Cr Clr Drug Dosing 119.0 ml/min 03/11/22 06:26 Est GFR ( Amer) 114.8 ml/min 03/11/22 06:26 Est GFR (Non-Af Amer) 99.0 ml/min 03/11/22 06:26 BUN/Creatinine Ratio 12.6 (10-20) 03/11/22 06:26 Glucose 95 mg/dl (70-99(Fasting)) 03/11/22 06:26 Calcium 8.5 mg/dl (8.5-10.1) 03/11/22 06:26 Magnesium 2.0 mg/dl (1.7-2.4) 03/11/22 06:26 Iron 43 mcg/dl (35-175) 03/10/22 09:08 Unsaturated IBC 322 mcg/dl (155-355) 03/10/22 09:08 Ferritin 14.3 ng/ml (8-388) 03/10/22 09:08 Total Bilirubin 0.5 mg/dl (0.2-1.0) 03/09/22 18:45 AST 16 U/L (13-39) 03/09/22 18:45 ALT 19 U/L (7-52) 03/09/22 18:45 Alkaline Phosphatase 58 U/L (34-104) 03/09/22 18:45 Troponin I High Sens 14.2 pg/ml (0-20) 03/09/22 18:45 C-Reactive Protein < 0.50 mg/dl (0-0.5) 03/09/22 18:45 Total Protein 6.4 gm/dl (6.0-8.3) 03/09/22 18:45 Albumin 4.1 gm/dl (3.4-5.0) 03/09/22 18:45 Globulin 2.3 gm/dl (2.5-4.0) L 03/09/22 18:45 Albumin/Globulin Ratio 1.8 (0.9-2) 03/09/22 18:45 Lipase 42 U/L (11-82) 03/09/22 18:45 Vitamin B12 415 pg/ml (180-914) 03/10/22 09:08 SARS-CoV-2, RNA, NAAT NEGATIVE (NEGATIVE) 03/09/22 19:45 Blood Type B Positive 03/09/22 19:03 Blood Type Recheck B Positive 03/09/22 21:35 Antibody Screen NEGATIVE 03/09/22 19:03 Crossmatch See Detail 03/09/22 19:03 Impressions Chest X-Ray 03/09/22 20:53 XR chest 1V portable CLINICAL HISTORY: Atypical chest pain TECHNIQUE: Single frontal radiograph of the chest was obtained. Comparison: Comparison is made to chest radiograph 01/27/2018 FINDINGS: No lines and tubes are seen. The cardiomediastinal silhouette is normal. The lungs are clear. No evidence of pleural effusion or pneumothorax. IMPRESSION: No acute chest disease. ACT 112: Negative or not required by law. Electronically signed by: Zion Curiel M.D. 03/10/2022 7:32 AM Hospital Course (1) Symptomatic anemia: (2) Acute blood loss anemia (ABLA): (3) GI bleed: (4) Iron deficiency: Symptomatic anemia, likely due to UGI bleed due to NSAIDs use- he was taking melissa aspirin 500 mg upto two times daily for the past week and was having black tarry stool for 4 days. Quit smoking and drinking 2.5 years ago. Doesn't use NSAIDs or anticoagulation. Does have some GERD symptoms and uses OTC PPI as needed at home - Prior Hb 15 in 2018. On presentation 8.5->8.2->7.4->8->8.7->7.98->8.8. PTT/INR normal, Plts normal. - s/p 1 U PRBC 03/10. - S/p iv venofer x2 due to iron deficiency - S/p EGD today which showed non severe reflux esophagitis, gastritis otherwise unremarkable, no biopsy taken, no fresh or altered blood - Seen by GI- recommendations noted. Continue PPI bid, No NSAIDs, OP colonoscopy- okay to discharge today - he is currently asymptomatic and feels better after1 U PRBC and iron transfusion - Recommended OP CBC in a week and follow up with PCP and GI for colonoscopy. Discussed when to return to the ED. He is comfortable and stable for discharge Iron deficiency due to above- Iron studies shows iron deficiency. S/p venofer x2. continue oral iron supplementation. Follow up with PCP Hypomagnesemia- resolved with repletion Total Time Total Time Spent Total Time Spent (In Minutes): 40 Discharge Plan Discharge Items Patient Disposition: Home - Self-Care Reason For Visit: POSSIBLE BLEEDING ULCER Discharge Diagnosis: Acute blood loss anemia, Gastritis, reflux esophagitis Activity: Resume your previous activity Non-emergency contact: Primary Care Provider Call non-emergency contact if: you have any medication questions, your symptoms worsen and you have a fever Follow-up/Referrals: PCP,NO [Primary Care Provider] - Diet: Regular Addtl Attending Provider Instructions: You were found to have inflammation of the stomach and esophagus likely from the pain pills Continue protonix twice daily Avoid Over the counter pain medications (NSAIDs) like advil, motrin, naproxen etc. You can take tylenol for pain. Continue oral iron supplementation Recommend repeat hemoglobin in a week and follow up with family doctor Follow up with GI for outpatient colonoscopy Pending Studies at Discharge: No Stand-Alone Forms: [employer], Smoking Cessation Medications and DC Order Prescriptions: New pantoprazole [Protonix] 40 mg tablet,delayed release (DR/EC) 40 mg PO BID 30 Days Qty: 60 RF: 0 ferrous sulfate [Iron (ferrous sulfate)] 325 mg (65 mg iron) tablet 325 mg PO DAILY Qty: 30 RF: 0 Discontinued ibuprofen 200 mg Tablet 200 mg PO Q6H Qty: 0 RF: 0 Discharge Orders: Discharge Order (Routine); Ordered 03/11/22 Ordered By: Jonathan Caro Admission Data Admit Date/Time: 03/09/22 21:04 Attending Provider: Jonathan Caro Admit Provider: Sergei Waldron Primary Care Provider: PCP,NO Other Providers: Anant Tapia ; Ara Moreira ; Lashon Bernard ; Angella Saini ; Oneil Frias ; Sowmya Granda ; Adri Faustin ; Mello Norwood ; Beryl Wylie ; Lauren Diaz ; Meg Brown ; Naz Valdes ; Geraldine Fairbanks ; Sergei Waldron Other Interventions: Discharge Summary Assessment (RN) Last Done: 03/11/22 15:44
--- NOTE | 2022-03-11 19:08 | Electrocardiogram Report ---
Test Reason : Blood Pressure : / mmHG Vent. Rate : 075 BPM Atrial Rate : 075 BPM P-R Int : 168 ms QRS Dur : 096 ms QT Int : 360 ms P-R-T Axes : 028 059 035 degrees QTc Int : 402 ms Normal sinus rhythm with sinus arrhythmia Normal ECG When compared with ECG of 27-JAN-2018 16:50, Vent. rate has increased BY 25 BPM Confirmed by Alen Rivers ([id number]) on 03/11/2022 7:08:36 PM Referred By: REFERRED SELF Confirmed By:Alen Rivers
== END 2022-03-11 16:59 | disposition home or self-care (01) | DRG 368 ==
LOC: ED 18:11 → 2N 21:04